=== PATIENT | female | born 1945 | race Caucasian/White ===

== ENCOUNTER 2016-08-30 15:13 | Emergency (ER) | payer OTHER, MEDICARE ==
[2016-08-30 15:26] VITALS: BP 110/68
--- NOTE | 2016-08-30 15:42 | UC ---
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 STARTED WHILE AT REST. NO RADIATION OF THE PAIN. NO NAUSEA, FEVER, SOB OR SWEATS. TOOK 2 TUMS AND BURPED THEN FELT BETTER. PAIN WAS COMPLETELY RESOLVED PRIOR TO COMING TO BUT WAS CONCERNED SO BROUGHT HER IN. HE REPORTS SHE HAD SOME DIZZINESS THIS MORNING WHEN GETTING OUT OF THE TUB WHICH ALSO WORRIED HIM. PT STATES THE DIZZINESS LAST FOR A FEW MINUTES BUT THEN WAS GONE. SHE WONDERS IF IT WAS BECAUSE SHE HADN'T EATEN ANYTHING. PT CURRENTLY FEELS WELL AT HER BASELINE. - History of Current Complaint Stated Complaint: CHEST PAIN Time Seen by Provider: 08/30/16 15:16 Hx Obtained From: Patient, Family/Doughnut Icer - Onset/Duration: Sudden Onset, Lasting Hours, Resolved Initial Severity: Moderate Current Severity: None Pain Intensity: 0 Chest Pain Location: Right Anterior Character: Heaviness Aggravating: Nothing Alleviating: Spontaneous Resolution Associated Signs & Symptoms: Positive: Chest Pain, Dizziness. Negative: Vision Changes, Anxiety, Recent Stress, Numbness, Tingling, Weakness, SOB, Syncope, Fever, Diaphoresis, Nausea/Vomiting, Palpitations, Back Pain - Allergy/Home Medications Allergies/Adverse Reactions: Allergies Allergy/AdvReac Type Severity Reaction Status Date / Time No Known Allergies Allergy Verified 08/30/16 15:24 Home Medications: Home Medications Pancrelipase (NF) [Creon (NF)] 3 cap PO TID WITH MEALS 08/30/16 [History Confirmed 08/30/16] Spironolactone TAB* [Aldactone TAB 25 MG*] 50 mg PO DAILY 08/30/16 [History Confirmed 08/30/16] PMH/Surg Hx/FS Hx/Imm Hx - Additional Past Medical History Additional PMH: PANCREATIC CANCER, CAMI Endocrine History Of: Denies: Diabetes Cardiovascular History Of: Denies: Hypertension, Pacemaker/ICD, Congestive Heart Failure Respiratory History Of: Denies: Asthma GI/ History Of: Denies: Renal Disease Neurological History Of: Denies: TIA Psychological History Of: Reports: Depression Cancer History Of: Reports: Breast Cancer - dcis 2011 (october?) WITH RADIATION ONLY - Surgical History Surgical History: Yes Surgery Procedure, Year, and Place: mitch, 3 c-sections, right breast lumpectomy , Whipple surgery 07/17/2014 - Family History Known Family History: Positive: Cardiac Disease, Hypertension, Diabetes, Other - No FHx of Ebola - Social History Alcohol Use: None Substance Use Type: None Substance Use Comment - Amount & Last Used: vicodin po Smoking Status (MU): Former Smoker Type: Cigarettes Amount Used/How Often: 1/2 PPD for 5 years Length of Time of Smoking/Using Tobacco: 5 years Have You Smoked in the Last Year: No When Did the Patient Quit Smoking/Using Tobacco: 20 YRS AGO - Immunization History Most Recent Influenza Vaccination: 02/22/15 Most Recent Tetanus Shot: up to date Most Recent Pneumonia Vaccination: 05/05/14 Review of Systems Constitutional: Negative ENT: Negative Respiratory: Negative Cardiovascular: Chest Pain Gastrointestinal: Negative Neurological: Other - DIZZY All Other Systems Reviewed And Are Negative: Yes Physical Exam Triage Information Reviewed: Yes Appearance: Well-Appearing, No Pain Distress, Well-Nourished Vital Signs: Initial Vital Signs Temp 98.5 F 08/30/16 15:17 Pulse 69 08/30/16 15:17 Resp 18 08/30/16 15:17 BP 110/68 08/30/16 15:17 Pulse Ox 96 08/30/16 15:17 Vital Signs Reviewed: Yes Eyes: Positive: Conjunctiva Clear ENT: Positive: Hearing grossly normal Neck: Positive: Supple Respiratory Exam: Normal Cardiovascular Exam: Normal Abdomen Description: Positive: Soft Musculoskeletal: Positive: No Edema Neurological: Positive: Alert Psychological: Positive: Age Appropriate Behavior Skin: Negative: rashes Diagnostics - EKG Cardiac Rate: NL - 70 BPM Cardiac Rhythm: Sinus: Normal Ectopy: None - Differential Diagnoses - Chest Pain Differential Diagnosis/HQI/PQRI: ACS, Chest Wall, Pulmonary Embolism - Clinical Impression Provider Diagnoses: REFLUX Discharge - Discharge Plan Condition: Stable Disposition: HOME Patient Education Materials: Gastroesophageal Reflux Disease (ED) Referrals: Jen Mcgee MD [Primary Care Provider] - If Needed Additional Instructions: YOUR SYMPTOMS SEEM TO BE RELATED TO REFLUX HOWEVER LOW THRESHOLD FOR GOING TO THE ER IF YOUR SYMPTOMS RETURN. GO TO ER WITHOUT FAIL IF YOU DEVELOP WORSENING CHEST PAIN, SHORTNESS OF BREATH, NAUSEA, SWEATS OR ANY OTHER CONCERNING SYMPTOMS.
== END 2016-08-30 15:53 | disposition home or self-care (01) ==
LOC: UCEAST 15:13
DX: K21.9 Gastro-esophageal reflux disease without esophagitis (principal); Z90.49 Acquired absence of other specified parts of digestive tract; Z87.891 Personal history of nicotine dependence
CPT/HCPCS: 93005; 99211; G0463

== ENCOUNTER 2016-09-12 02:56 | Observation (INO) | payer OTHER, MEDICARE ==
[2016-09-12] MEDS ORDERED: NS 0.9% 1000 ML* 1,000 ML IV ONE (03:26)
[2016-09-12] MEDS ORDERED: Ondansetron INJ* 2 MG/ML VIAL IV ONE (03:26)
[2016-09-12] MEDS ORDERED: HYDROmorphone* 1 MG/ML 1 ML SYR IV ONE ×2 (03:26→06:34)
[2016-09-12 03:39] LABS: Hematocrit 33 % (35-47); Hemoglobin 10.8 g/dl (12.0-16.0); Mean Corpuscular HGB Conc 33 g/dl (31-36); Mean Corpuscular Hemoglobin 30 pg (27-31); Mean Corpuscular Volume 93 fL (80-97); Mean Platelet Volume 8 um3 (7.4-10.4); Red Blood Count 3.54 10^6/ul (4.0-5.4); Red Cell Distribution Width 15 % (10.5-15); White Blood Count 8.3 10^3/ul (3.5-10.8)
[2016-09-12 03:55] LABS: Albumin 2.9 g/dL (3.2-5.2); BUN/Creatinine Ratio 23.9 (8-20); C Reactive Protein 7.83 mg/L (< 5.00); Calcium 8.2 mg/dL (8.6-10.3); EGFR African American 81.7 (>60); EGFR Non-African American 63.5 (>60); Globulin 2.6 g/dL (2-4); Potassium 4.7 mmol/L (3.5-5.0); Total Bilirubin 0.4 mg/dL (0.2-1.0); Total Protein 5.5 g/dL (6.4-8.9)
[2016-09-12] MEDS ORDERED: Iohexol 300* (CONTRAST) 10 ML SDV IV ONE (04:28)
--- NOTE | 2016-09-12 07:03 | ED ---
Chelsea, DoctorDemi, scribed for Domitila Cordero MD on 09/12/16 at 0321 . GI/ HPI - HPI Summary HPI Summary: 71 year old female arrived to [facility] c/o abdominal pain starting at 00:30 today. She rated the pain as 10/10 upon arrival. She reports chills in addition to the abdominal pain; she denies any N/V/D, constipation, dysuria, or fever. She reports having similar episodes on and off in the past, but never of this intensity; however, this particular episode is similar to an obstruction previously experienced when she had stent inserted in her bile duct. Pt has PMHx of liver cancer, and a history of regular infections since 2014 (port that was in place since removed). She also had a whipple procedure in 05/2014. She regularly sees Dr. Mcgee (PCP) and Dr. Torres (Infectious Disease). - History of Current Complaint Chief Complaint: EDAbdPain Time Seen by Provider: 09/12/16 03:07 Stated Complaint: ABD PAIN Hx Obtained From: Patient Onset/Duration: Started Hours Ago, Still Present Timing: Constant Severity: Moderate Current Severity: Moderate Pain Intensity: 10 - on 0-10 numerical scale Location of Pain: Diffuse Associated Signs and Symptoms: Positive: Chills, Abdominal Pain - diffuse. Negative: Nausea, Vomiting, Constipation, Diarrhea, Fever, Dysuria - Additional Pertinent History Primary Care Physician: [id number] - Allergy/Home Medications Allergies/Adverse Reactions: Allergies Allergy/AdvReac Type Severity Reaction Status Date / Time No Known Allergies Allergy Verified 08/30/16 15:24 PMH/Surg Hx/FS Hx/Imm Hx Endocrine/Hematology History: Reports: Hx Blood Disorders Denies: Hx Diabetes, Hx Systemic Lupus Erythematosus Cardiovascular History: Denies: Hx Congestive Heart Failure, Hx Hypertension, Hx Pacemaker/ICD Respiratory History: Reports: Hx Sleep Apnea, Other Respiratory Problems/ Disorders - home oxygen use of 2 liters at night Denies: Hx Asthma GI History: Reports: Hx Gastroesophageal Reflux Disease, Hx Jaundice, Other GI Disorders - ERCP for obstructive jaundice, whipple 2013 History: Denies: Hx Dialysis, Hx Renal Disease Musculoskeletal History: Denies: Hx Rheumatoid Arthritis, Hx Osteoporosis Sensory History: Reports: Hx Contacts or Glasses Denies: Hx Hearing Aid Opthamlomology History: Reports: Hx Contacts or Glasses Neurological History: Denies: Hx Transient Ischemic Attacks (TIA) Psychiatric History: Reports: Hx Depression Denies: Hx Panic Disorder - Cancer History Cancer Type, Location and Year: BREAST CA RIGHT, pancreatic cancer Hx Chemotherapy: Yes - 12/2014, NOT BREAST RELATED Hx Radiation Therapy: Yes - 12/2014 NOT BREAST RELATED - Surgical History Surgery Procedure, Year, and Place: mitch, 3 c-sections, right breast lumpectomy , Whipple surgery 07/17/2014 Hx Anesthesia Reactions: No Infectious Disease History: No Infectious Disease History: Reports: History Other Infectious Disease - "BLOOD INFECTION" Denies: Traveled Outside the [place] in Last 30 Days - Family History Known Family History: Positive: Cardiac Disease, Hypertension, Diabetes, Other - No FHx of Ebola - Social History Lives: With Family Alcohol Use: None Substance Use Type: Reports: None Substance Use Comment - Amount & Last Used: vicodin po Hx Tobacco Use: Yes Smoking Status (MU): Former Smoker Type: Cigarettes Amount Used/How Often: 1/2 PPD for 5 years Length of Time of Smoking/Using Tobacco: 5 years Have You Smoked in the Last Year: No Review of Systems Positive: Chills. Negative: Fever Positive: Abdominal Pain, Other - no constipation. Negative: Vomiting, Diarrhea , Nausea Negative: dysuria All Other Systems Reviewed And Are Negative: Yes Physical Exam Triage Information Reviewed: Yes Vital Signs On Initial Exam: Initial Vitals Temp Pulse Resp BP Pulse Ox 98.6 F 80 18 123/52 97 09/12/16 03:00 09/12/16 03:00 09/12/16 03:00 09/12/16 03:00 09/12/16 03:00 Vital Signs Reviewed: Yes Appearance: Positive: Well-Appearing, No Pain Distress Skin: Positive: Warm, Skin Color Reflects Adequate Perfusion, Dry Eyes: Positive: EOMI, CORTES ENT: Positive: Pharynx normal, TMs normal Neck: Positive: Supple, Nontender Respiratory/Lung Sounds: Positive: Clear to Auscultation, Breath Sounds Present. Negative: Rales, Rhonchi, Wheezes Cardiovascular: Positive: RRR. Negative: Murmur, Rub Abdomen Description: Positive: Soft. Negative: Nontender - diffuse abdominal tenderness Bowel Sounds: Positive: Present Musculoskeletal: Positive: Strength/ROM Intact. Negative: Edema Left, Edema Right Neurological: Positive: Sensory/Motor Intact, Alert, Oriented to Person Place, Time, CN Intact II-III Psychiatric: Positive: Affect/Mood Appropriate Diagnostics - Vital Signs Vital Signs Temp Pulse Resp BP Pulse Ox 09/12/16 03:00 98.6 F 80 18 123/52 97 - Laboratory Lab Results: Lab Results 09/12/16 09/12/16 09/12/16 Range/Units 03:22 03:22 03:22 WBC 8.3 (3.5-10.8) 10^3/ul RBC 3.54 L (4.0-5.4) 10^6/ul Hgb 10.8 L (12.0-16.0) g/dl Hct 33 L (35-47) % MCV 93 (80-97) fL MCH 30 (27-31) pg MCHC 33 (31-36) g/dl RDW 15 (10.5-15) % Plt Count 185 (150-450) 10^3/ul MPV 8 (7.4-10.4) um3 Neut % (Auto) 88.3 H (38-83) % Lymph % (Auto) 7.5 L (25-47) % Baca % (Auto) 3.7 (1-9) % Eos % (Auto) 0.2 (0-6) % Baso % (Auto) 0.3 (0-2) % Absolute Neuts (auto) 7.4 (1.5-7.7) 10^3/ul Absolute Lymphs (auto) 0.6 L (1.0-4.8) 10^3/ul Absolute Monos (auto) 0.3 (0-0.8) 10^3/ul Absolute Eos (auto) 0 (0-0.6) 10^3/ul Absolute Basos (auto) 0 (0-0.2) 10^3/ul Absolute Nucleated RBC 0 10^3/ul Nucleated RBC % 0 Sodium 134 (133-145) mmol/L Potassium 4.7 (3.5-5.0) mmol/L Chloride 109 (101-111) mmol/L Carbon Dioxide 20 L (22-32) mmol/L Anion Gap 5 (2-11) mmol/L BUN 21 (6-24) mg/dL Creatinine 0.88 (0.51-0.95) mg/dL Est GFR ( Amer) 81.7 (>60) Est GFR (Non-Af Amer) 63.5 (>60) BUN/Creatinine Ratio 23.9 H (8-20) Glucose 117 H (70-100) mg/dL Lactic Acid 1.1 (0.5-2.0) mmol/L Calcium 8.2 L (8.6-10.3) mg/dL Total Bilirubin 0.40 (0.2-1.0) mg/dL AST 27 (13-39) U/L ALT 17 (7-52) U/L Alkaline Phosphatase 117 H (34-104) U/L C-Reactive Protein 7.83 H (< 5.00) mg/L Total Protein 5.5 L (6.4-8.9) g/dL Albumin 2.9 L (3.2-5.2) g/dL Globulin 2.6 (2-4) g/dL Albumin/Globulin Ratio 1.1 (1-3) Lipase 13 (11.0-82.0) U/L Result Diagrams: 09/12/16 03:22 09/12/16 03:22 Lab Statement: Any lab studies that have been ordered have been reviewed, and results considered in the medical decision making process. - Radiology Chest X-Ray Radiology Interpretation Completed By: ED Physician - Pacemaker in place. CXR Normal. - CT CT A/P CT Interpretation Completed By: Radiologist - Impression: No change in a small amount of ascites. Mild inflammation and narrowing of the gastro-jejunostomy without obstruction, which may be due to infection or reaction to chemotherapy. - EKG 03:13 Cardiac Rate: NL - 80 EKG Rhythm: Sinus Rhythm Ectopy: None EKG Interpretation: Low Voltage EKG Comparison: No Significant Change - unchanged from 08/30 GIGU Course/Dx - Course Course Of Treatment: 71 yo female with history of cancer s/p whipple with onset of abd pain at midnight at home. Pt has been given pain meds and is awaiting a CT and will be signed out to Dr. Dupree for final disposition - Diagnoses Provider Diagnoses: SOB (shortness of breath), Chest pain Discharge - Discharge Plan Condition: Stable Disposition: HOME Patient Education Materials: Chest Pain (ED), Dyspnea (ED) Referrals: Jen Mcgee MD [Primary Care Provider] - The documentation as recorded by the scribe, Doctor,Demi accurately reflects the service I personally performed and the decisions made by me, Domitila Cordero MD.
[2016-09-12 07:27] LABS: Urine Bacteria Absent (Absent); Urine Bilirubin Negative (Negative); Urine Glucose Negative (Negative); Urine Nitrite Negative (Negative)
--- NOTE | 2016-09-12 08:10 | RAD ---
CLINICAL HISTORY: Abdominal pain, liver cancer COMPARISON: March 10, 2016 TECHNIQUE: Multiple contiguous axial CT scans were obtained of the abdomen and pelvis after the administration of intravenous contrast. Coronal and sagittal multiplanar reformations are submitted for review. Oral contrast was administered. Delayed images were obtained through the abdomen FINDINGS: LUNG BASES: The lung bases are clear. LIVER: The liver is normal in shape, size, contour, and attenuation. BILE DUCTS: There is pneumobilia GALLBLADDER: The gallbladder is not visualized PANCREAS: The head of the pancreas is not seen. The patient appears to be status post Whipple's procedure. The tail the pancreas is patent with mild pancreatic ductal dilatation. SPLEEN: Normal in size and appearance. UPPER GI TRACT: Evaluation of the gastrointestinal tract is limited by incomplete gastric distention. There is mucosal thickening of the GE junction. The patient appears to be status post Whipple's procedure SMALL BOWEL AND MESENTERY: As noted above, patient appears to be status post Whipple's procedure. There is mild distention in the region of the gastrojejunostomy without dilatation. There is mild inflammatory change along the gastrojejunostomy COLON: There is diverticulosis of the distal colon ADRENALS: Normal bilaterally. KIDNEYS: The kidneys are normal in shape, size, contour, and axis. There is no hydronephrosis or nephrolithiasis. BLADDER: The bladder is smooth in contour. PELVIC ORGANS: The uterus and adnexa are grossly normal for technique. AORTA: The aorta is normal. IVC: Unremarkable LYMPH NODES: There are retroperitoneal lymph nodes measuring up to 0.9 cm in short axis. These are similar to the previous examination. ABDOMINAL WALL: There is no evidence for abdominal wall hernia. BONES AND SOFT TISSUES: Degenerative changes are noted along the spine OTHER: There is a moderate amount of perihepatic ascites similar to the previous examination. IMPRESSION: 1. STATUS POST WHIPPLE'S PROCEDURE. 2. THERE IS MILD DISTENTION OF THE BOWEL IN THE REGION OF GASTROJEJUNOSTOMY WITH MILD ADJACENT INFLAMMATORY CHANGE. 3. STABLE PERIHEPATIC ASCITES.
[2016-09-12] MEDS ORDERED: HYDROmorphone* 1 MG/ML 1 ML SYR IV SLOW PU ONE (09:30)
[2016-09-12] MEDS ORDERED: Ondansetron INJ* 2 MG/ML VIAL IV PRN (10:06)
[2016-09-12] MEDS: Pantoprazole IV* 40 MG IV SCH (13:43)
[2016-09-12] MEDS: NS 0.9% 1000 ML* 1,000 ML IV SCH (13:43)
[2016-09-12] MEDS: HYDROmorphone* 1 MG/ML 1 ML SYR IV SLOW PU PRN ×2 (13:51→20:01)
[2016-09-12] MEDS ORDERED: Acetaminophen TAB* 325 MG PO PRN (23:25)
[2016-09-12] MEDS ORDERED: Acetaminophen TAB* 325 MG ONE (23:31)
[2016-09-13] MEDS: HYDROmorphone* 1 MG/ML 1 ML SYR IV SLOW PU PRN ×2 (00:30→21:38)
[2016-09-13] MEDS: NS 0.9% 1000 ML* 1,000 ML IV SCH ×2 (02:23→08:04)
[2016-09-13] MEDS ORDERED: NS 0.9% 500 ML BAG* 500 ML IV ONE (05:40)
[2016-09-13] MEDS: Pantoprazole IV* 40 MG IV SCH (07:47)
[2016-09-13 07:59] LABS: Hematocrit 27 % (35-47); Hemoglobin 8.6 g/dl (12.0-16.0); Mean Corpuscular HGB Conc 32 g/dl (31-36); Mean Corpuscular Hemoglobin 31 pg (27-31); Mean Corpuscular Volume 94 fL (80-97); Mean Platelet Volume 8 um3 (7.4-10.4); Red Blood Count 2.81 10^6/ul (4.0-5.4); Red Cell Distribution Width 15 % (10.5-15)
[2016-09-13 08:11] LABS: Add Diff/Slide Review? Slide Review Added; Comments Flag Yes
[2016-09-13 08:13] LABS: Albumin 2.3 g/dL (3.2-5.2); BUN/Creatinine Ratio 27.9 (8-20); Calcium 7.6 mg/dL (8.6-10.3); EGFR African American 83.9 (>60); EGFR Non-African American 65.2 (>60); Globulin 2.2 g/dL (2-4); Potassium 4.7 mmol/L (3.5-5.0); Total Bilirubin 0.5 mg/dL (0.2-1.0); Total Protein 4.5 g/dL (6.4-8.9)
--- NOTE | 2016-09-13 11:11 | CONSULT ---
Consult Consult: Greer Marinelli of Hem/Onc came to the ED and saw Ms. Gaspar. She was admitted in stable condition with a diagnosis of abdominal pain.
[2016-09-13] MEDS ORDERED: CMC:Anastrozole (NF) 1 MG TAB PO SCH (12:00)
[2016-09-13] MEDS ORDERED: PTO: Anastrozole (NF) 1 MG TAB PO SCH (16:38)
[2016-09-13] MEDS: PANCRELIPASE 12000 UNIT PO SCH (17:15)
[2016-09-14] MEDS: NS 0.9% 1000 ML* 1,000 ML IV SCH (05:06)
[2016-09-14 05:48] LABS: Hematocrit 25 % (35-47); Hemoglobin 8.3 g/dl (12.0-16.0); Mean Corpuscular HGB Conc 33 g/dl (31-36); Mean Corpuscular Hemoglobin 31 pg (27-31); Mean Corpuscular Volume 93 fL (80-97); Mean Platelet Volume 8 um3 (7.4-10.4); Red Cell Distribution Width 15 % (10.5-15); White Blood Count 5.8 10^3/ul (3.5-10.8)
[2016-09-14 06:00] LABS: Albumin 2.2 g/dL (3.2-5.2); BUN/Creatinine Ratio 28.9 (8-20); Calcium 7.3 mg/dL (8.6-10.3); EGFR African American 96.8 (>60); EGFR Non-African American 75.2 (>60); Globulin 2.2 g/dL (2-4); Potassium 4.3 mmol/L (3.5-5.0); Total Bilirubin 0.4 mg/dL (0.2-1.0); Total Protein 4.4 g/dL (6.4-8.9)
[2016-09-14] MEDS: PANCRELIPASE 12000 UNIT PO SCH (08:09)
[2016-09-14] MEDS: Pantoprazole IV* 40 MG IV SCH (08:10)
[2016-09-14 08:21] VITALS: BP 106/55
[2016-09-14] MEDS ORDERED: BIFIDOBACTERIUM INFANTIS PO SCH (09:00)
--- NOTE | 2016-10-23 12:33 | DS ---
DISCHARGE SUMMARY: DATE OF ADMISSION: 09/12/16 DATE OF DISCHARGE: 09/14/16 HOSPITAL COURSE: Sharon willis is a 71-year-old female with a history of cholangiocarcinoma. She is status post therapy and has been off therapy for over a year. She has had lots of problems in the past with severe malnutrition , worsening ascites, elevated CA19-9 tumor marker, abdominal pain, multiple episodes of infection. She had intermittent abdominal pain since her Whipple in May 2014 who presented this time with severe pain 10/10 in the left upper and lower quadrant. There is no associated nausea, vomiting, diarrhea or constipation. Hydromorphone was given in the emergency room with only modest help. Decision was made to admit her to the hospital and to treat her with IV fluids and pain medications. CT scan of the abdomen and pelvis revealed mild distention of the bowel in the region of the gastrojejunostomy with mild adjacent inflammatory changes and stable lenore-hepatic ascites. No other significant findings were noted. The patient was treated as discussed above with IV narcotics and IV fluids. By the following day her pain was somewhat improved, she had had a solitary isolated fever to 100.7, but had no symptoms associated with this. We tried to slowly increase her diet. She tolerated this well, and problems resolved, and she was able to be discharged to home on 09/14/16. Most likely this was really small bowel obstruction as she has had several times in the past. DISCHARGE DIAGNOSES: 1. Abdominal pain, question small bowel obstruction. 2. History of cholangiocarcinoma. MEDICATIONS AT THE TIME OF DISCHARGE: Included 1. Creon/pancrelipase 3 caps 3 times per day with meals. 2. Spironolactone 50 mg daily. 3. Anastrozole 1 mg daily for previous history of breast cancer. 4. Probiotics daily. 5. Magnesium oxide 40 mg b.i.d. 6. Zofran 4 mg q. 6 hours p.r.n. [id number]/[facility] #: [id number] [facility]
== END 2016-09-14 11:45 | disposition home or self-care (01) ==
LOC: ED 02:56 → MED 10:02
PROVIDERS: ADMIT Internal Medicine Hematology & Oncology; ATTEND Internal Medicine Hematology & Oncology
DX: Z85.07 Personal history of malignant neoplasm of pancreas (principal); K21.9 Gastro-esophageal reflux disease without esophagitis; R18.8 Other ascites; Z87.891 Personal history of nicotine dependence; Z79.899 Other long term (current) drug therapy
CPT/HCPCS: 36415; 74177; 80053; 81003; 81015; 83605; 83690; 85025; 86140; 87086; 93005; 96374; 96375; 96376; 99220; 99233; 99238; 99283; A9270-GY; G0378; J1170; J2405; Q9967

== ENCOUNTER 2017-05-10 09:12 | Emergency (ER) | payer MEDICARE, OTHER ==
[2017-05-10] MEDS ORDERED: Ondansetron INJ* 2 MG/ML VIAL IV ONE (10:24)
[2017-05-10] MEDS ORDERED: Famotidine IV* 10 MG/ML 2 ML (20 mg) IV ONE (10:24)
[2017-05-10] MEDS ORDERED: NS 0.9% 1000 ML* 1,000 ML IV ONE ×2 (10:24→12:05)
[2017-05-10 11:02] LABS: Hematocrit 31 % (35-47); Hemoglobin 10.1 g/dl (12.0-16.0); Mean Corpuscular HGB Conc 33 g/dl (31-36); Mean Corpuscular Hemoglobin 29 pg (27-31); Mean Corpuscular Volume 89 fL (80-97); Mean Platelet Volume 8 um3 (7.4-10.4); Red Blood Count 3.45 10^6/ul (4.0-5.4); Red Cell Distribution Width 15 % (10.5-15); White Blood Count 5.7 10^3/ul (3.5-10.8)
[2017-05-10 11:17] LABS: ALT 24 U/L (7-52); Albumin 3.2 g/dL (3.2-5.2); Alkaline Phosphatase 139 U/L (34-104); BUN/Creatinine Ratio 17.6 (8-20); Blood Urea Nitrogen 18 mg/dL (6-24); C Reactive Protein 26.91 mg/L (< 5.00); CO2 Carbon Dioxide 18 mmol/L (22-32); Calcium 8.3 mg/dL (8.6-10.3); Chloride 104 mmol/L (101-111); Creatine Kinase 45 U/L (10-223); EGFR African American 68.9 (>60); EGFR Non-African American 53.6 (>60); Globulin 2.9 g/dL (2-4); Glucose 101 mg/dL (70-100); Lipase 15 U/L (11.0-82.0); Sodium 126 mmol/L (133-145); Total Protein 6.1 g/dL (6.4-8.9)
[2017-05-10 11:24] LABS: Anion Gap 4 mmol/L (2-11)
[2017-05-10] MEDS ORDERED: Morphine INJ* 4 MG/ML 1 ML CARPUJECT IV ONE (11:27)
--- NOTE | 2017-05-10 11:51 | RAD ---
INDICATION: Short of breath COMPARISON: Chest x-ray March 06, 2016 TECHNIQUE: An AP portable view obtained at 1125 hours is submitted. FINDINGS: Bones/Soft Tissues: There are no acute bony findings. Cardiomediastinal: The cardiomediastinal silhouette is normal. Lungs: There are no infiltrates. Pleura: There are no pleural effusions. Other: None IMPRESSION: NO ACTIVE DISEASE.
[2017-05-10 12:38] LABS: Urine Bilirubin Negative (Negative); Urine Glucose Negative (Negative); Urine Nitrite Negative (Negative)
[2017-05-10 12:56] LABS: Magnesium 1.7 mg/dL (1.9-2.7)
--- NOTE | 2017-05-10 13:03 | ED ---
Nausea/Vomiting/Diarrhea HPI - HPI Summary HPI Summary: Patient is a 71F with a history of breast CA and pancreatic duct CA and whipple procedure in 2013 presents with N/V/D sine this morning. She has been eating and drinking OK until this morning. Denies fevers, sweats, chills. Denies abdominal pain. Notes to 3-4 bouts of vomiting in a row which has since resolved. Denies hematemesis or melena. 2 bouts of diarrhea described as loose and brown. Not malodorous. Endorses diffuse body aches. Flu shot UTD. Denies chest pain, SOB, SNOW, ear pain, ear pain. Endorses weakness which began today. Not had PO intake since last evening. Patient of Dr. Kauffman. Last CT obtained 2 months ago showed no changes from previous CT. She has felt otherwise well with last illness requiring an ED visit over 1 year ago. Flu vaccine UTD this year. Denies sick contacts. Denies travel. VS stable on arrival and noted at 108/63; 96 pulse ox; 82 HR. Afebrile on arrival. - History of Current Complaint Chief Complaint: EDFluSymptoms Stated Complaint: SORE THROAT , VOMITING, Time Seen by Provider: 05/10/17 09:20 Hx Obtained From: Patient ?: No Onset/Duration: Sudden Onset Timing: Constant Severity Initially: Mild Severity Currently: Mild Pain Intensity: 3 Pain Scale Used: 0-10 Numeric Character: Cramping Alleviating Factor(s): Nothing Nausea/Vomiting Presence: Nauseated, Vomiting Vomiting Frequency: Every 15-60 minutes Nausea/Vomiting Duration: 0-12 hours Vomiting Characteristics: Nonbilious Diarrhea Presence: Yes Diarrhea Frequency: Every 15-60 minutes Diarrhea Duration: 0-12 hours - Risk Factors Influenza Risk Factors: Chronic Medical or Immunosuppresive Condition - Allergies/Home Medications Allergies/Adverse Reactions: Allergies Allergy/AdvReac Type Severity Reaction Status Date / Time No Known Allergies Allergy Verified 03/11/17 09:40 PMH/Surg Hx/FS Hx/Imm Hx Previously Healthy: Yes Endocrine/Hematology History: Reports: Hx Blood Disorders Denies: Hx Diabetes, Hx Systemic Lupus Erythematosus Cardiovascular History: Denies: Hx Congestive Heart Failure, Hx Hypertension, Hx Pacemaker/ICD Respiratory History: Reports: Hx Sleep Apnea, Other Respiratory Problems/ Disorders - home oxygen use of 2 liters at night Denies: Hx Asthma GI History: Reports: Hx Gastroesophageal Reflux Disease, Hx Jaundice, Other GI Disorders - ERCP for obstructive jaundice, whipple 2013 History: Denies: Hx Dialysis, Hx Renal Disease Musculoskeletal History: Denies: Hx Rheumatoid Arthritis, Hx Osteoporosis Sensory History: Reports: Hx Contacts or Glasses Denies: Hx Hearing Aid Opthamlomology History: Reports: Hx Contacts or Glasses Neurological History: Denies: Hx Transient Ischemic Attacks (TIA) Psychiatric History: Reports: Hx Depression Denies: Hx Panic Disorder - Cancer History Cancer Type, Location and Year: BREAST CA RIGHT, pancreatic cancer Hx Chemotherapy: Yes - 12/2014, NOT BREAST RELATED Hx Radiation Therapy: Yes - 12/2014 NOT BREAST RELATED - Surgical History Surgery Procedure, Year, and Place: mitch, 3 c-sections, right breast lumpectomy , Whipple surgery 07/17/2014 Hx Anesthesia Reactions: No - Immunization History Hx Pertussis Vaccination: No Immunizations Up to Date: Unable to Obtain/Confirm Infectious Disease History: No Infectious Disease History: Reports: History Other Infectious Disease - "BLOOD INFECTION" Denies: Traveled Outside the [place] in Last 30 Days - Family History Known Family History: Positive: Cardiac Disease, Hypertension, Diabetes, Other - No FHx of Ebola - Social History Occupation: Retired Lives: With Family Alcohol Use: None Hx Substance Use: No Substance Use Type: Reports: None Substance Use Comment - Amount & Last Used: vicodin po Hx Tobacco Use: Yes Smoking Status (MU): Former Smoker Type: Cigarettes Amount Used/How Often: 1/2 PPD for 5 years Length of Time of Smoking/Using Tobacco: 5 years Have You Smoked in the Last Year: No Review of Systems Constitutional: Negative Positive: Fatigue. Negative: Fever, Chills, Skin Diaphoresis Eyes: Negative ENT: Negative Cardiovascular: Negative Respiratory: Negative Positive: Vomiting, Diarrhea, Nausea Genitourinary: Negative Positive: no symptoms reported, see HPI Musculoskeletal: Negative Positive: Headache All Other Systems Reviewed And Are Negative: Yes Physical Exam Triage Information Reviewed: Yes Vital Signs On Initial Exam: Initial Vitals Temp Pulse Resp BP Pulse Ox 99.3 F 95 16 119/51 98 05/10/17 09:14 05/10/17 09:14 05/10/17 09:14 05/10/17 09:14 05/10/17 09:14 Vital Signs Reviewed: Yes Appearance: Positive: Ill-Appearing Skin: Positive: Skin Color Reflects Adequate Perfusion Head/Face: Positive: Normal Head/Face Inspection Eyes: Positive: CORTES, Conjunctiva Clear Neck: Positive: Supple, No Lymphadenopathy Respiratory/Lung Sounds: Positive: Breath Sounds Present Cardiovascular: Positive: Pulses are Symmetrical in both Upper and Lower Extremities Abdomen Description: Positive: Nontender, Soft Musculoskeletal: Positive: Strength/ROM Intact Neurological: Positive: Alert, Oriented to Person Place, Time, Speech Normal Psychiatric: Positive: Normal - Donato Coma Scale Coma Scale Total: 15 Diagnostics - Vital Signs Vital Signs Temp Pulse Resp BP Pulse Ox 05/10/17 12:39 18 05/10/17 12:00 78 106/59 95 05/10/17 11:30 82 108/63 96 05/10/17 11:04 84 100/66 96 05/10/17 10:59 83 96 05/10/17 10:30 116/54 05/10/17 10:21 89 97 05/10/17 10:19 125/71 05/10/17 09:14 99.3 F 95 16 119/51 98 - Laboratory Lab Results: Lab Results 05/10/17 05/10/17 05/10/17 Range/Units 10:41 10:41 10:41 WBC 5.7 (3.5-10.8) 10^3/ul RBC 3.45 L (4.0-5.4) 10^6/ul Hgb 10.1 L (12.0-16.0) g/dl Hct 31 L (35-47) % MCV 89 (80-97) fL MCH 29 (27-31) pg MCHC 33 (31-36) g/dl RDW 15 (10.5-15) % Plt Count 197 (150-450) 10^3/ul MPV 8 (7.4-10.4) um3 Neut % (Auto) 76.9 (38-83) % Lymph % (Auto) 14.8 L (25-47) % [place] % (Auto) 7.2 (1-9) % Eos % (Auto) 0.1 (0-6) % Baso % (Auto) 1.0 (0-2) % Absolute Neuts (auto) 4.4 (1.5-7.7) 10^3/ul Absolute Lymphs (auto) 0.8 L (1.0-4.8) 10^3/ul Absolute Monos (auto) 0.4 (0-0.8) 10^3/ul Absolute Eos (auto) 0 (0-0.6) 10^3/ul Absolute Basos (auto) 0.1 (0-0.2) 10^3/ul Absolute Nucleated RBC 0 10^3/ul Nucleated RBC % 0.1 Sodium 126 L (133-145) mmol/L Potassium TNP Chloride 104 (101-111) mmol/L Carbon Dioxide 18 L (22-32) mmol/L Anion Gap 4 (2-11) mmol/L BUN 18 (6-24) mg/dL Creatinine 1.02 H (0.51-0.95) mg/dL Est GFR ( Amer) 68.9 (>60) Est GFR (Non-Af Amer) 53.6 (>60) BUN/Creatinine Ratio 17.6 (8-20) Glucose 101 H (70-100) mg/dL Lactic Acid 0.6 (0.5-2.0) mmol/L Calcium 8.3 L (8.6-10.3) mg/dL Magnesium TNP Total Bilirubin 0.30 (0.2-1.0) mg/dL AST TNP ALT 24 (7-52) U/L Alkaline Phosphatase 139 H (34-104) U/L Total Creatine Kinase 45 (10-223) U/L Troponin I 0.00 (<0.04) ng/mL C-Reactive Protein 26.91 H (< 5.00) mg/L Total Protein 6.1 L (6.4-8.9) g/dL Albumin 3.2 (3.2-5.2) g/dL Globulin 2.9 (2-4) g/dL Albumin/Globulin Ratio 1.1 (1-3) Lipase 15 (11.0-82.0) U/L Urine Color Urine Appearance Urine pH (5-9) Ur Specific [place] (1.010-1.030) Urine Protein (Negative) Urine Ketones (Negative) Urine Blood (Negative) Urine Nitrate (Negative) Urine Bilirubin (Negative) Urine Urobilinogen (Negative) Ur Leukocyte Esterase (Negative) Urine Glucose (Negative) Influenza A (Rapid) (Negative) Influenza B (Rapid) (Negative) 05/10/17 05/10/17 05/10/17 Range/Units 11:33 12:20 12:20 WBC (3.5-10.8) 10^3/ul RBC (4.0-5.4) 10^6/ul Hgb (12.0-16.0) g/dl Hct (35-47) % MCV (80-97) fL MCH (27-31) pg MCHC (31-36) g/dl RDW (10.5-15) % Plt Count (150-450) 10^3/ul MPV (7.4-10.4) um3 Neut % (Auto) (38-83) % Lymph % (Auto) (25-47) % [place] % (Auto) (1-9) % Eos % (Auto) (0-6) % Baso % (Auto) (0-2) % Absolute Neuts (auto) (1.5-7.7) 10^3/ul Absolute Lymphs (auto) (1.0-4.8) 10^3/ul Absolute Monos (auto) (0-0.8) 10^3/ul Absolute Eos (auto) (0-0.6) 10^3/ul Absolute Basos (auto) (0-0.2) 10^3/ul Absolute Nucleated RBC 10^3/ul Nucleated RBC % Sodium (133-145) mmol/L Potassium Pending Chloride (101-111) mmol/L Carbon Dioxide (22-32) mmol/L Anion Gap (2-11) mmol/L BUN (6-24) mg/dL Creatinine (0.51-0.95) mg/dL Est GFR ( Amer) (>60) Est GFR (Non-Af Amer) (>60) BUN/Creatinine Ratio (8-20) Glucose (70-100) mg/dL Lactic Acid (0.5-2.0) mmol/L Calcium (8.6-10.3) mg/dL Magnesium 1.7 L Total Bilirubin (0.2-1.0) mg/dL AST 33 ALT (7-52) U/L Alkaline Phosphatase (34-104) U/L Total Creatine Kinase (10-223) U/L Troponin I (<0.04) ng/mL C-Reactive Protein (< 5.00) mg/L Total Protein (6.4-8.9) g/dL Albumin (3.2-5.2) g/dL Globulin (2-4) g/dL Albumin/Globulin Ratio (1-3) Lipase (11.0-82.0) U/L Urine Color Straw Urine Appearance Clear Urine pH 5.0 (5-9) Ur Specific [place] 1.004 L (1.010-1.030) Urine Protein Negative (Negative) Urine Ketones Negative (Negative) Urine Blood Negative (Negative) Urine Nitrate Negative (Negative) Urine Bilirubin Negative (Negative) Urine Urobilinogen Negative (Negative) Ur Leukocyte Esterase Negative (Negative) Urine Glucose Negative (Negative) Influenza A (Rapid) Negative (Negative) Influenza B (Rapid) Negative (Negative) Result Diagrams: 05/10/17 10:41 05/10/17 12:20 Lab Statement: Any lab studies that have been ordered have been reviewed, and results considered in the medical decision making process. Naus/Vom/Diarrhea Course/Dx - Course Course Of Treatment: Patient evaluated for N/V/D since this morning. Patient is given 4mg morphine, 4mg zofran and 2L fluids. She is feeling improved since arrival to the ED. Labs obtained and reveals slight anemia with moderate hyponatremia and hyperkalemia. Discharge - Discharge Plan Condition: Stable Disposition: HOME Patient Education Materials: Acute Nausea and Vomiting (ED) Referrals: Jen Mcgee MD [Primary Care Provider] - Additional Instructions: Your salt was a little low (usually this is due to vomiting/diarrhea), so please eat saltine crackers/ salty soups, etc for the next few days Drink plenty of fluids Rest Tylenol for any discomfort For pain not well controlled with tylenol, please take the Tramadol as needed for pain Use your at home zofran for any nausea If you experience any worsening/differing symptoms - return to the ED Please call Dr. Kauffman's office for a follow up.
[2017-05-10 15:58] VITALS: BP 92/55
== END 2017-05-10 16:00 | disposition home or self-care (01) ==
LOC: ED 09:12
DX: R11.2 Nausea with vomiting, unspecified (principal); R51 Headache; R19.7 Diarrhea, unspecified; R53.83 Other fatigue; Z87.891 Personal history of nicotine dependence
CPT/HCPCS: 36415; 71010; 80053; 81003; 82550; 83605; 83690; 83735; 84484; 85025; 86140; 87040; 87502; 93005; 96374; 96375; 99283; J2270; J2405

== ENCOUNTER 2017-05-13 21:11 | Emergency (ER) | payer OTHER ==
[2017-05-13 21:32] VITALS: BP 112/57
[2017-05-13] MEDS ORDERED: predniSONE TAB* 20 MG PO ONE (21:41)
[2017-05-13] MEDS ORDERED: Albuterol 2.5 MG/3 ML NEB.SOL* (0.083%) INH ONE (21:42)
--- NOTE | 2017-05-13 21:52 | UC ---
Respiratory Complaint HPI - HPI Summary HPI Summary: 71 y/o female PMHX of Brast cancer, pancreatic CA s/p whipple surgery 2014 presents to the urgent care accompany by c/o SOB, productive cough with wheezing and weakness 05/11/2017. Pt reports she was recently at the [facility] for N/V/D and D/C home with Zofran PO. Pt reports diarrhea and vomiting resolved on Thursday. But her daughter was Dx with Bronchitis and she thinks she caught up the cough from her. Pt states she is producing a white/tabor phlegm. She has been taking cough drops to alleviate symptoms. Pt denies fever, chest pain, abdominal pain, N/V/D, urinary symptoms. - History of Current Complaint Chief Complaint: UCRespiratory Stated Complaint: COUGH/CONGESTION Time Seen by Provider: 05/13/17 21:17 Hx Obtained From: Patient, Family/Tire Recapper - ?: No Onset/Duration: Gradual Onset, Lasting Days - 2 days, Still Present Timing: Intermittent Episodes - cough Severity Initially: Mild Severity Currently: Mild Pain Intensity: 0 Pain Scale Used: 0-10 Numeric Character: Cough: Productive, Sputum Description: - white and tabor Alleviating Factors: OTC Meds Associated Signs And Symptoms: Positive: Wheezing, Nasal Congestion - Risk Factors Pulmonary Embolism Risk Factors: Negative Cardiac Risk Factors: Negative Pseudomonas Risk Factors: Negative Tuberculosis Risk Factors: Negative - Allergies/Home Medications Allergies/Adverse Reactions: Allergies Allergy/AdvReac Type Severity Reaction Status Date / Time No Known Allergies Allergy Verified 05/13/17 21:19 Home Medications: Home Medications Sulfamethox/Trimethoprim DS* [Bactrim DS 800/160 TAB*] 1 tab PO DAILY 05/13/17 [ History Confirmed 05/13/17] PMH/Surg Hx/FS Hx/Imm Hx Previously Healthy: No - previously in the ER 05/10/2017 for vomting and diarrhea Cancer History: Breast Cancer - s/p brast lumpectomy, Other - Pancreatic Cancer s/p whiple surgery - Surgical History Surgical History: Yes Surgery Procedure, Year, and Place: mitch, 3 c-sections, right breast lumpectomy , Whipple surgery 07/17/2014 - Family History Known Family History: Positive: Cardiac Disease, Hypertension, Diabetes, Other - No FHx of Ebola - Social History Occupation: Retired Lives: With Family Alcohol Use: None Substance Use Type: None Substance Use Comment - Amount & Last Used: vicodin po Smoking Status (MU): Former Smoker Type: Cigarettes Amount Used/How Often: 1/2 PPD for 5 years Length of Time of Smoking/Using Tobacco: 5 years Have You Smoked in the Last Year: No When Did the Patient Quit Smoking/Using Tobacco: 20 YRS AGO - Immunization History Most Recent Influenza Vaccination: fall 2015 Most Recent Tetanus Shot: up to date Most Recent Pneumonia Vaccination: 05/05/14 Review of Systems Constitutional: Negative Skin: Negative Eyes: Negative ENT: Nasal Discharge - mild nasal congestion Respiratory: Shortness Of Breath, Cough Cardiovascular: Negative Gastrointestinal: Negative Genitourinary: Negative Motor: Negative Neurovascular: Negative Musculoskeletal: Negative Neurological: Negative Psychological: Negative Is Patient Immunocompromised?: No All Other Systems Reviewed And Are Negative: Yes Physical Exam Triage Information Reviewed: Yes Vital Signs: Initial Vital Signs Temp 98.8 F 05/13/17 21:22 Pulse 72 05/13/17 21:22 Resp 20 05/13/17 21:22 BP 112/57 05/13/17 21:22 Pulse Ox 97 05/13/17 21:22 - Additional Comments Vital Signs Reviewed: Yes General: well developed, well nourished thin female sitting in the examining table w/o any apparent distress Eyes: Positive: Conjunctiva Clear - PERRLA, EOMI, fundi grossly normal ENT: Positive: Normal ENT inspection, Hearing grossly normal, Pharynx normal, Nasal congestion - edematous and erythematous nasal mucosa, No nasal drainage observed, TMs normal. Negative: Tonsillar swelling, Tonsillar exudate Neck: Positive: Supple, Nontender, No Lymphadenopathy Respiratory: no orthopnea or dyspnea. Able to speak in full sentences, no retractions or accessory muscle use, no tripod position, stridor, or head bobbing. mild wheezing in the left lateral posterior lung, mild rhonchi, no rales or crackles Cardiovascular: Positive: RRR, No Murmur, Pulses Normal, Brisk Capillary Refill Abdomen Description: Positive: Nontender, No Organomegaly, Soft. Negative: CVA Tenderness (R), CVA Tenderness (L) Bowel Sounds: Positive: Present Musculoskeletal Exam: Normal Musculoskeletal: Positive: Strength Intact, ROM Intact, No Edema Neurological Exam: Normal Psychological Exam: Normal Skin Exam: Normal Diagnostic Evaluation - Laboratory O2 Sat by Pulse Oximetry: 97 Respiratory Course/Dx - Course Course Of Treatment: 71 y/o female PMHX of Brast cancer, pancreatic CA s/p whipple surgery 2014 presents to the urgent care accompany by c/o SOB, productive cough with wheezing and weakness 05/11/2017. Pt reports she was recently at the [facility] for N/V/D and D/C home with Zofran PO. Pt reports diarrhea and vomiting resolved on Thursday. But her daughter was Dx with Bronchitis and she thinks she caught up the cough from her. Pt states she is producing a white/tabor phlegm. She has been taking cough drops to alleviate symptoms. Pt denies fever, chest pain, abdominal pain, N/V/D, urinary symptoms.Hx obtained. Pt with mild rhonchi and wheezing on examination. Pt recently had a chest X-ray at [facility]. X-ray:negative for - Differential Dx/Diagnosis Differential Diagnosis/HQI/PQRI: Asthma, Bronchitis, Influenza, Lower Resp Infection, Other - pneumonia Provider Diagnoses: 1-Acute bronchitis. 2-Cough, dyspnea. 3-Wheezing - Physician Notification/Consults Discussed Patient Care With: Joshua Jennings - Dr Jennings agreed with PT's plan of care Discharge - Discharge Plan Condition: Stable Disposition: HOME Prescriptions: Albuterol 2.5MG/3ML (0.083%)* [Ventolin 2.5 MG/3 ML NEB.JOSE*] 2.5 mg INH Q6H #1 lyndsey Benzonatate CAP* [Tessalon 100 MG CAP*] 100 mg PO TID #15 cap predniSONE TAB* [Deltasone TAB*] 20 mg PO DAILY #8 tab Patient Education Materials: Acute Bronchitis (ED), Dyspnea (ED), Bronchospasm (ED) Referrals: Jen Mcgee MD [Primary Care Provider] - 2 Days Additional Instructions: 1-Please take Prednisone PO as directed . You got first dose today 2-Take Tessalon PO tabs as directed and use the albuterol inhaler to alleviate cough. Increase fluid intake, take Pedialyte PO a teaspoon q2hrs, rest and eat small portions well. 3- If symptoms do not improve or worsen or your develop SOB with fever and severe wheezing please go immediately to the ER further evaluation and treatment. 4- F/u with your PCP in 2-3 days for further management
== END 2017-05-13 22:29 | disposition home or self-care (01) ==
LOC: UCCORT 21:11
DX: J20.9 Acute bronchitis, unspecified (principal); R05 Cough; R06.00 Dyspnea, unspecified; R06.2 Wheezing; Z85.3 Personal history of malignant neoplasm of breast; Z85.07 Personal history of malignant neoplasm of pancreas; Z87.891 Personal history of nicotine dependence
CPT/HCPCS: 99212; G0463; J7512

== ENCOUNTER 2018-08-30 19:46 | Emergency (ER) | payer OTHER, MEDICARE ==
[2018-08-30 20:29] VITALS: BP 102/68
[2018-08-30 20:49] LABS: Influenza A Molecular NEGATIVE (Negative); Influenza B Molecular NEGATIVE (Negative)
--- NOTE | 2018-08-30 20:52 | UC ---
FLU HPI - HPI Summary HPI Summary: Pt with 4 days head cngstion, sinus pressure, pnd, green secretions, tactile temp and myalgia. + cough, no sob, cp Pt has used OTC meds with mild improvement. + dental pain Pt s/p whipple - no current chemo Medications reviewed this visit - History of Current Complaint Chief Complaint: UCGeneralIllness Stated Complaint: SNOW,ST,COUGH,CONGESTION,TIRED Time Seen by Provider: 08/30/18 20:50 Hx Obtained From: Patient Pain Intensity: 5 - Allergy/Home Medications Allergies/Adverse Reactions: Allergies Allergy/AdvReac Type Severity Reaction Status Date / Time No Known Allergies Allergy Verified 04/26/18 13:33 PMH/Surg Hx/FS Hx/Imm Hx Previously Healthy: Yes Endocrine History: Diabetes Cardiovascular History: Hypertension Cancer History: Other - pancreatic - Surgical History Surgical History: Yes Surgery Procedure, Year, and Place: mitch, 3 c-sections, right breast lumpectomy , Whipple surgery 07/17/2014 - Family History Known Family History: Positive: Cardiac Disease, Hypertension, Diabetes, Other - No FHx of Ebola - Social History Occupation: Unemployed Lives: With Family Alcohol Use: None Substance Use Type: None Substance Use Comment - Amount & Last Used: vicodin po Smoking Status (MU): Former Smoker Type: Cigarettes Amount Used/How Often: 1/2 PPD for 5 years Length of Time of Smoking/Using Tobacco: 5 years Have You Smoked in the Last Year: No When Did the Patient Quit Smoking/Using Tobacco: 20 YRS AGO - Immunization History Most Recent Influenza Vaccination: fall 2015 Most Recent Tetanus Shot: up to date Most Recent Pneumonia Vaccination: 05/05/14 Review of Systems All Other Systems Reviewed And Are Negative: Yes Constitutional: Positive: Fatigue Skin: Positive: Negative Eyes: Positive: Negative ENT: Positive: Sore Throat, Ear Ache, Nasal Discharge, Sinus Congestion, Sinus Pain/Tenderness Respiratory: Positive: Cough Musculoskeletal: Positive: Myalgia Physical Exam - Summary Physical Exam Summary: Vital Signs Reviewed: Yes A+Ox3, no distress Eyes: Conjunctiva Clear, CORTES. EOM intact and full ENT: Hearing grossly normal TM x 2 + fluid R>L, turbinates inflammed and boggy , + pnd, + TTP max sinuses R>L mmoist, uvula midline, no exudate, no erythema Neck: Positive: Supple Respiratory: Positive: No respiratory distress, No accessory muscle use + CTA throughout no w/r Cardiovascular: RRR nl s1, s2 no m/r CBT <2 sec abd soft + BS nt/nd no guarding, no distension Musculoskeletal Exam: RICHARDS x 4 without difficulty Strength Intact, ROM Intact Neurological: Positive: Alert, + sensation throughout Psychological: Positive: Normal Response To Family Skin: Positive: no rash, no ecchymosis Vital Signs: Initial Vital Signs Temp 98.5 F 08/30/18 20:25 Pulse 62 08/30/18 20:25 Resp 16 08/30/18 20:25 BP 102/68 08/30/18 20:25 Pulse Ox 99 08/30/18 20:25 Flu Course/Dx - Course Course Of Treatment: Pt with progressive sinus pressure, ear fullness, actile temp, PND and cough. VSS. exam c/w sinusitis, head congestion. influenza neg. Rx abx. flonase. hydrate. humifidy air. secretion precaution. return precaution - Differential Dx/Diagnosis Provider Diagnosis: Rhinosinusitis Discharge - Sign-Out/Discharge Documenting (check all that apply): Patient Departure All imaging exams completed and their final reports reviewed: No Studies - Discharge Plan Condition: Stable Disposition: HOME Prescriptions: Amoxicillin PO (*) [Amoxicillin 500 MG CAP*] 500 mg PO Q12H #14 cap Fluticasone NASAL SPRAY 50MCG* [Flonase NASAL SPRAY 50MCG*] 2 spray BOTH NARES DAILY #1 btl Patient Education Materials: Sinusitis (ED), Upper Respiratory Infection (ED) Referrals: Tristan SUTTON,Thor Nixon [Primary Care Provider] - Additional Instructions: - Stay well hydrated. Drink plenty of non-alcoholic, non-caffinated beverages. - Alternate ibuprofen (Advil, Motrin) 600mg and Tylenol every 3 hours for pain or fever. Take with food. Do NOT take for more than 4-5 days. - These infections are spread by secretions - do NOT share eating or drinking utensils - clean items you share with other people such as cell phones, computer mouse, TV remote, computer tablets,etc. Once you start to feel better , change your toothbrush and your pillowcase. - get plenty of restful sleep - humidify the air in the room where you sleep - boil water, run a hot steam shower, vaporizer, cups of water by heat register - humidify the air in your CPAP machine - okay to take over the counter decongestant and cough medication - use nasal spray as prescribed - If you continue to have facial pressure, post nasal drip and congestion, start antibiotics as prescribed on Thursday. It is recommended you take probiotics and eat yogurt while taking antibiotics - contact your doctor or return with questions or concerns - Billing Disposition and Condition Condition: STABLE Disposition: Home
== END 2018-08-30 21:15 | disposition home or self-care (01) ==
LOC: UCCORT 19:46
DX: Z87.891 Personal history of nicotine dependence (principal); J32.9 Chronic sinusitis, unspecified
CPT/HCPCS: 99212; G0463

== ENCOUNTER 2019-04-04 06:53 | Day surgery (SDC) | payer OTHER, MEDICARE ==
[2019-04-04] MEDS ORDERED: Midazolam* 1 MG/ML 2 ML VIAL (2 MG) ONE ×2 (08:11→08:25)
[2019-04-04 09:05] VITALS: BP 115/62
[2019-04-04] MEDS ORDERED: Lidocaine 1% MPF ** 5 ML VIAL ONE (09:23)
[2019-04-04] MEDS ORDERED: Phenylephrine OPHTH SOL 2.5%* 2 ML ONE (09:23)
[2019-04-04] MEDS ORDERED: Tetracaine 0.5% OPTH.SOL 4 ML* 1 DROP BTL ONE (09:23)
[2019-04-04] MEDS ORDERED: Neomycin/Polymy/Dex OPHTH.OIN* 3.5 GM ONE (09:23)
[2019-04-04] MEDS ORDERED: Cyclopentolate 1% OPTH.SOL* 2 ML BTL ONE (09:23)
[2019-04-04] MEDS ORDERED: Ketorolac 0.5% OPHTH (NF) 0.5 % 5 ML BTL ONE (09:23)
[2019-04-04] MEDS ORDERED: Tropicamide 1% OPTH.SOL* BTL ONE (09:23)
[2019-04-04] MEDS ORDERED: acetaZOLAMIDE TAB* 250 MG ONE (09:23)
[2019-04-04] MEDS ORDERED: Povidone Iodine 5% OPTH* 30 ML BTL ONE (09:23)
--- NOTE | 2019-04-04 16:55 | OP ---
DATE OF OPERATION: 04/04/19 [facility] DATE OF : 47 SURGEON: Americo Anguiano MD ANESTHESIA: Monitored anesthesia care. PREOPERATIVE DIAGNOSIS: Cataract, left eye. POSTOPERATIVE DIAGNOSIS: Cataract, left eye. OPERATIVE PROCEDURE: Extracapsular cataract extraction of the left eye with intraocular lens implant. IMPLANTS: SN6AT8 18.5 diopter lens to the left eye at 90 degrees. COMPLICATIONS: None. DESCRIPTION OF PROCEDURE: The patient was given phenylephrine 2.5% and cyclopentolate 1% eye drops to the operative eye in the preoperative area. The patient was sat in the upright position and corneal markings were placed at 0 and 180 degrees. The patient was taken to the operating room where a time-out was taken to identify the correct patient, site, and side of surgery. The patient's left eye was prepped and draped in the usual sterile fashion with 5% Betadine. A second time-out was taken to verify the correct patient, site, and side of surgery and correct lens selection. A lid speculum was placed to the left eye. Corneal markings were placed at the 87-degree meridian for toric lens placement. A 1 mm paracentesis blade was used to make a clear corneal incision in the inferotemporal position. Preservative-free 1% lidocaine was injected into the anterior chamber. DisCoVisc was then injected into the anterior chamber. A 2.75 mm keratome blade was used to make a triplanar incision at the superotemporal position. A cystotome initiated a capsulorrhexis , which was completed with Utrata forceps in a continuous and curvilinear manner. Hydrodissection of the lens was performed with BSS on a cannula. The lens could be spun in the capsular bag. The phacoemulsification handpiece was used with a [id number] technique to remove the nucleus. The I/A handpiece then removed the residual cortical lens material. Provisc was then injected to inflate the capsular bag. The ORA system was then used to confirm correct lens selection. Based upon ORA measurements, the SN6AT8 18.5 diopter lens was injected into the capsular bag and rotated to 90 degrees. The residual Provisc was removed from the eye with the I/A handpiece. The corneal incisions were hydrated and no leaks occurred at physiologic pressure around 20 mmHg per palpation. The lid speculum was removed and drapes were removed. Maxitrol ointment was placed to the surface of the operative eye. An adhesive patch and shield was then placed on the operative eye. The patient was taken to the post-operative area in stable condition. [id number]/[facility] #: [id number] MTDD
== END 2019-04-04 09:15 | disposition home or self-care (01) ==
LOC: OREAST 06:53
PROVIDERS: ATTEND Student in an Organized Health Care Education/Training Program
DX: H25.812 Combined forms of age-related cataract, left eye (principal); E11.9 Type 2 diabetes mellitus without complications; Z79.84 Long term (current) use of oral hypoglycemic drugs; Z87.891 Personal history of nicotine dependence; C25.9 Malignant neoplasm of pancreas, unspecified; K21.9 Gastro-esophageal reflux disease without esophagitis; R60.9 Edema, unspecified
CPT/HCPCS: A9270-GY; J2250; V2787

== ENCOUNTER 2019-07-15 12:20 | Emergency (ER) | payer OTHER, MEDICARE ==
[2019-07-15 12:46] VITALS: BP 115/79
--- NOTE | 2019-07-15 13:19 | UC ---
Respiratory Complaint HPI - HPI Summary HPI Summary: Pt presents with c/o chest congestion, cough X 2 weeks. Pt has hx of breast and pancreatic cancer. Dr. Kauffman is pt's oncologist. Pt has been out of treatment for cnacer X 5 years. - History of Current Complaint Chief Complaint: UCRespiratory Stated Complaint: LOW ENERGY,COUGH Time Seen by Provider: 07/15/19 13:08 Hx Obtained From: Patient ?: No Onset/Duration: Gradual Onset, Lasting Weeks, Still Present Timing: Intermittent Episodes Severity Initially: Mild Severity Currently: Moderate Pain Intensity: 0 Character: Cough: Nonproductive Aggravating Factors: Deep Breaths, Recumbent Position Associated Signs And Symptoms: Positive: URI, Nasal Congestion - Risk Factors Pulmonary Embolism Risk Factors: Malignancy Cardiac Risk Factors: Negative Pseudomonas Risk Factors: Negative Tuberculosis Risk Factors: Negative - Allergies/Home Medications Allergies/Adverse Reactions: Allergies Allergy/AdvReac Type Severity Reaction Status Date / Time No Known Allergies Allergy Verified 04/04/19 07:54 Home Medications: Home Medications Atorvastatin* [Lipitor 40 MG*] 40 mg PO DAILY 07/15/19 [History Confirmed ] Guaifenesin/Dextromethorphan [Robitussin Cough-Chest Dm Liq] 1 liq PO Q4H PRN [History Confirmed 07/15/19] Ondansetron ODT TAB* [Zofran 4 MG Odt TAB*] 4 mg PO SEE INSTRUCTIONS PRN [History Confirmed 07/15/19] Oxycodone HCl 5 mg PO SEE INSTRUCTIONS PRN 07/15/19 [History Confirmed 07/15/19] PMH/Surg Hx/FS Hx/Imm Hx Previously Healthy: Yes Cancer History: Breast Cancer, Other - pancreatic - Surgical History Surgical History: Yes Surgery Procedure, Year, and Place: [place], 3 c-sections, right breast lumpectomy , Whipple surgery 07/17/2014 - Family History Known Family History: Positive: Cardiac Disease, Hypertension, Diabetes, Other - No FHx of Ebola - Social History Occupation: Retired Lives: With Family Alcohol Use: None Substance Use Type: None Substance Use Comment - Amount & Last Used: vicodin po Smoking Status (MU): Former Smoker Type: Cigarettes Amount Used/How Often: 1/2 PPD for 5 years Length of Time of Smoking/Using Tobacco: 5 years Have You Smoked in the Last Year: No When Did the Patient Quit Smoking/Using Tobacco: mid 1980s - Immunization History Most Recent Influenza Vaccination: fall 2015 Most Recent Tetanus Shot: up to date Most Recent Pneumonia Vaccination: 05/05/14 Vaccination Up to Date: Yes Review of Systems All Other Systems Reviewed And Are Negative: Yes Constitutional: Positive: Chills Skin: Positive: Negative Eyes: Positive: Negative ENT: Positive: Sinus Congestion Respiratory: Positive: Cough Cardiovascular: Positive: Negative Gastrointestinal: Positive: Negative Genitourinary: Positive: Negative Motor: Positive: Negative Neurovascular: Positive: Negative Musculoskeletal: Positive: Negative Neurological: Positive: Negative Psychological: Positive: Negative Is Patient Immunocompromised?: No Physical Exam Triage Information Reviewed: Yes Appearance: Well-Appearing Vital Signs: Initial Vital Signs Temp 97.8 F 07/15/19 12:38 Pulse 68 07/15/19 12:38 Resp 24 07/15/19 12:38 BP 115/79 07/15/19 12:38 Pulse Ox 98 07/15/19 12:38 Vital Signs Reviewed: Yes Eye Exam: Normal ENT: Positive: Nasal congestion Dental Exam: Normal Neck exam: Normal Respiratory Exam: Other - upper respiratory congestion Cardiovascular Exam: Normal Musculoskeletal Exam: Normal Neurological Exam: Normal Psychological Exam: Normal Skin Exam: Normal Respiratory Course/Dx - Differential Dx/Diagnosis Differential Diagnosis/HQI/PQRI: Bronchitis, Influenza, Lower Resp Infection Provider Diagnosis: Viral syndrome Discharge ED - Sign-Out/Discharge Documenting (check all that apply): Patient Departure All imaging exams completed and their final reports reviewed: No Studies - Discharge Plan Condition: Stable Disposition: HOME Prescriptions: Albuterol HFA INHALER* [Ventolin HFA Inhaler*] 1 - 2 puff INH Q6H PRN #1 mdi PRN Reason: Sob/Wheezing Benzonatate CAP* [Tessalon 100 MG CAP*] 100 mg PO Q8H PRN #30 cap PRN Reason: Cough predniSONE 20 mg TAB [Deltasone 20 MG TAB*] 60 mg PO DAILY #12 tab Patient Education Materials: Viral Syndrome (ED), Acute Cough (ED) Referrals: Woody Kauffman MD [Medical Doctor] - If Needed Thor Hudson MD [Primary Care Provider] - If Needed - Billing Disposition and Condition Condition: STABLE Disposition: Home
== END 2019-07-15 13:56 | disposition home or self-care (01) ==
LOC: UCCORT 12:20
DX: B34.9 Viral infection, unspecified (principal); R09.81 Nasal congestion; R05 Cough; Z85.3 Personal history of malignant neoplasm of breast; Z85.07 Personal history of malignant neoplasm of pancreas; Z87.891 Personal history of nicotine dependence
CPT/HCPCS: 71046; 99212; G0463

== ENCOUNTER 2020-10-16 10:10 | Inpatient (IN) ==
[2020-10-16 11:15] LABS: ABS Lymphocytes 0.2 10^3/ul (1.0-4.8); Eosinophil % 1.1 %; Hematocrit 32 % (35-47); Hemoglobin 10.2 g/dL (12.0-16.0); Lymphocyte % 6.5 %; Mean Corpuscular HGB Conc 33 g/dL (31-36); Mean Corpuscular Hemoglobin 29 pg (27-31); Mean Corpuscular Volume 88 fL (80-97); Mean Platelet Volume 8.3 fL (7.4-10.4); Platelet Count 140 10^3/uL (150-450); Red Blood Count 3.59 10^6 /uL (3.70-4.87); Red Cell Distribution Width 16 % (10-15); White Blood Count 3.2 10^3/uL (3.5-10.8)
[2020-10-16 11:17] LABS: Activated Partial Thrombo Time 26.4 seconds (26.0-38.0); INR 1.21 (0.82-1.09)
[2020-10-16 11:26] LABS: ALT 38 U/L (7-52); AST 47 U/L (13-39); Albumin 3.3 g/dL (3.2-5.2); Albumin/Globulin Ratio 1.2 (1-3); Alkaline Phosphatase 114 U/L (34-104); Anion Gap 10 mmol/L (2-11); Blood Urea Nitrogen 18 mg/dL (6-24); C Reactive Protein 153.54 mg/L (<8.01); CO2 Carbon Dioxide 22 mmol/L (22-32); Calcium 8.7 mg/dL (8.6-10.3); Chloride 106 mmol/L (101-111); EGFR African American 70.4 (>60); EGFR Non-African American 58.2 (>60); Globulin 2.7 g/dL (2-4); Glucose 142 mg/dL (70-100); Potassium 4.3 mmol/L (3.5-5.0); Sodium 138 mmol/L (135-145)
[2020-10-16 11:31] LABS: Troponin I 0.14 ng/mL (<0.03)
[2020-10-16] MEDS: NS 0.9% 1000 ml BAG 1,000 ML IV.FLUID IV ONE ×2 (11:39→12:19)
[2020-10-16] MEDS ORDERED: DOXYcycline 100 MG in NS 0.9% 250 ml 250 ML IVPB ONE (11:44)
[2020-10-16 12:02] LABS: Creatine Kinase 54 U/L (10-223)
[2020-10-16] MEDS ORDERED: Iodixanol (CONTRAST) 320 MG/ML 100 ML SDV IV ONE (12:06)
[2020-10-16 12:33] LABS: Urine Appearance Clear; Urine Bilirubin Negative (Negative); Urine Blood 1+ (Negative); Urine Color Yellow; Urine Glucose Negative (Negative); Urine Ketones Trace (Negative); Urine Nitrite Negative (Negative); Urine Protein Negative (Negative); Urine Specific Gravity 1.011 (1.002-1.030); Urine Urobilinogen Negative (Negative)
[2020-10-16 12:38] LABS: Urine Bacteria Absent (Absent); Urine Red Blood Cell Trace(0-2/hpf) (Absent); Urine Squamous Epithelial Cell Present (Absent); Urine White Blood Cell Trace(0-5/hpf) (Absent)
[2020-10-16] MEDS ORDERED: NS 0.9% 1000 ml BAG 1,000 ML IV SCH (13:15)
[2020-10-16] MEDS ORDERED: Dextrose 50% Syringe 50 ml 25 GM/50 ML SYRINGE IV PUSH PRN (14:48)
[2020-10-16] MEDS ORDERED: Ondansetron 4 mg VIAL 2 MG/ML 2 ml VIAL IV PRN (14:50)
[2020-10-16] MEDS ORDERED: Al Hydrox/Mg Hydrox/Simet LIQ 30 ML UDC PO PRN (14:50)
[2020-10-16] MEDS ORDERED: Zosyn per Pharmacy NOTE FOLLOW UP SCH (15:00)
[2020-10-16 15:46] LABS: Troponin I 1.09 ng/mL (<0.03)
[2020-10-16] MEDS ORDERED: ZOSYN 3.375 GM x ONE DOSE over 30 miuntes IV (16:30)
[2020-10-16] MEDS: Enoxaparin 40 MG/0.4 ML SYR SUBCUT SCH (17:15)
[2020-10-16] MEDS: Cholecalciferol (VIT D3) 1,000 unit TAB PO SCH (17:15)
[2020-10-16] MEDS: NS 0.9% 1000 ml BAG 1,000 ML IV SCH (17:22)
[2020-10-16] MEDS: Pancrelipase 5,000 units CAP PO SCH ×2 (17:57→19:59)
[2020-10-16 18:00] LABS: Troponin I 0.96 ng/mL (<0.03)
[2020-10-16] MEDS: DOXYcycline 100 MG in NS 0.9% 250 ml 250 ML IVPB SCH (19:58)
[2020-10-16] MEDS ORDERED: ZOSYN 3.375 GM Q8H per EXTENDED INFUSION IV SCH (22:00)
[2020-10-17] MEDS: NS 0.9% 1000 ml BAG 1,000 ML IV SCH (05:40)
[2020-10-17 06:01] LABS: ABS Eosinophils 0.1 10^3/ul (0-0.6); ABS Lymphocytes 0.8 10^3/ul (1.0-4.8); ABS Monocytes 0.3 10^3/ul (0-0.8); ABS Neutrophils 6.8 10^3/ul (1.5-7.7); Eosinophil % 1.2 %; Hematocrit 26 % (35-47); Hemoglobin 8.6 g/dL (12.0-16.0); Lymphocyte % 9.8 %; Mean Corpuscular HGB Conc 33 g/dL (31-36); Mean Corpuscular Hemoglobin 29 pg (27-31); Mean Corpuscular Volume 88 fL (80-97); Mean Platelet Volume 8.3 fL (7.4-10.4); Nucleated Red Blood Cells % 0.1; Platelet Count 105 10^3/uL (150-450); Red Blood Count 2.96 10^6 /uL (3.70-4.87); Red Cell Distribution Width 16 % (10-15); White Blood Count 8.1 10^3/uL (3.5-10.8)
[2020-10-17 06:20] LABS: Albumin 2.7 g/dL (3.2-5.2); Albumin/Globulin Ratio 1.2 (1-3); Calcium 7.4 mg/dL (8.6-10.3); EGFR African American 66.3 (>60); EGFR Non-African American 54.8 (>60); Globulin 2.3 g/dL (2-4); Potassium 3.6 mmol/L (3.5-5.0); Total Bilirubin 0.5 mg/dL (0.2-1.0)
[2020-10-17] MEDS ORDERED: Perflutren Lipid Microsphere 3 ML VIAL ONE (08:06)
[2020-10-17] MEDS: Pancrelipase 5,000 units CAP PO SCH ×5 (08:37→20:09)
[2020-10-17] MEDS: Cholecalciferol (VIT D3) 1,000 unit TAB PO SCH (09:19)
[2020-10-17] MEDS: DOXYcycline 100 MG in NS 0.9% 250 ml 250 ML IVPB SCH (09:20)
[2020-10-17 10:13] LABS: Troponin I 0.94 ng/mL (<0.03)
[2020-10-17] MEDS: Enoxaparin 40 MG/0.4 ML SYR SUBCUT SCH (16:05)
[2020-10-17] MEDS: Cefepime 2 GM in Dextrose 2 GM/50 ML BAG IV SCH (16:19)
[2020-10-17 18:56] LABS: Cholesterol 70 mg/dL; HDL Cholesterol 18.1 mg/dL; LDL Cholesterol 23 mg/dL; Triglycerides 146 mg/dL
[2020-10-18 07:45] LABS: ABS Eosinophils 0.1 10^3/ul (0-0.6); ABS Lymphocytes 0.9 10^3/ul (1.0-4.8); ABS Monocytes 0.5 10^3/ul (0-0.8); Eosinophil % 1.7 %; Hematocrit 26 % (35-47); Hemoglobin 8.5 g/dL (12.0-16.0); Lymphocyte % 13.4 %; Mean Corpuscular HGB Conc 34 g/dL (31-36); Mean Corpuscular Hemoglobin 29 pg (27-31); Mean Corpuscular Volume 86 fL (80-97); Mean Platelet Volume 9.3 fL (7.4-10.4); Nucleated Red Blood Cells % 0.1; Platelet Count 114 10^3/uL (150-450); Red Blood Count 2.97 10^6 /uL (3.70-4.87); Red Cell Distribution Width 16 % (10-15); White Blood Count 6.6 10^3/uL (3.5-10.8)
[2020-10-18 08:23] LABS: Blood Urea Nitrogen 15 mg/dL (6-24); CO2 Carbon Dioxide 21 mmol/L (22-32); EGFR African American 66.3 (>60); EGFR Non-African American 54.8 (>60); Glucose 113 mg/dL (70-100); Potassium 3.5 mmol/L (3.5-5.0); Sodium 140 mmol/L (135-145)
[2020-10-18 08:24] LABS: Anion Gap 7 mmol/L (2-11); Chloride 112 mmol/L (101-111)
[2020-10-18] MEDS ORDERED: Potassium Chlor 20 meq TAB.ER PO ONE (09:06)
[2020-10-18] MEDS: Pancrelipase 5,000 units CAP PO SCH ×4 (09:27→20:33)
[2020-10-18] MEDS: Cefepime 2 GM in Dextrose 2 GM/50 ML BAG IV SCH ×2 (09:29→19:09)
[2020-10-18 09:30] LABS: Magnesium 1.6 mg/dL (1.9-2.7)
[2020-10-18 09:33] LABS: Troponin I 0.43 ng/mL (<0.03)
[2020-10-18] MEDS: Cholecalciferol (VIT D3) 1,000 unit TAB PO SCH (09:41)
[2020-10-18] MEDS ORDERED: Magnesium Sulfate IV 3 GM in NS 0.9% 100 ml BAG 100 ML IVPB ONE (10:30)
[2020-10-18] MEDS ORDERED: Midazolam 10 mg/10 ml VIAL 1 mg/ml 10 ml VIAL (10 mg) ONE (14:56)
[2020-10-18] MEDS ORDERED: fentaNYL 100 mcg/2 ml 50 MCG/ML VIAL ONE (14:57)
[2020-10-18 16:57] LABS: Folate 10.99 ng/mL (5.90-24.80)
[2020-10-18 16:58] LABS: Vitamin B12 486 pg/mL (180-914)
[2020-10-18] MEDS: Enoxaparin 40 MG/0.4 ML SYR SUBCUT SCH (18:03)
[2020-10-18 23:01] LABS: Anaplasma phagocytophilum Negative (Negative); B. miyamotoi PCR, B Negative (Negative); Babesia divergens/MO-1 Negative (Negative); Babesia ducani Negative (Negative); Ehrlichia chaffeensis Negative (Negative); Ehrlichia ewingii/canis Negative (Negative); Ehrlichia muris eauclairensis Negative (Negative)
[2020-10-19] MEDS: Cefepime 2 GM in Dextrose 2 GM/50 ML BAG IV SCH (05:04)
[2020-10-19 06:36] LABS: ABS Eosinophils 0.1 10^3/ul (0-0.6); ABS Lymphocytes 0.8 10^3/ul (1.0-4.8); ABS Monocytes 0.4 10^3/ul (0-0.8); Eosinophil % 2.3 %; Hematocrit 24 % (35-47); Lymphocyte % 19.4 %; Mean Corpuscular HGB Conc 33 g/dL (31-36); Mean Corpuscular Hemoglobin 29 pg (27-31); Mean Corpuscular Volume 86 fL (80-97); Mean Platelet Volume 8.8 fL (7.4-10.4); Nucleated Red Blood Cells % 0.1; Platelet Count 136 10^3/uL (150-450); Red Blood Count 2.78 10^6 /uL (3.70-4.87); Red Cell Distribution Width 16 % (10-15); White Blood Count 4.3 10^3/uL (3.5-10.8)
[2020-10-19 06:52] LABS: Calcium 7.9 mg/dL (8.6-10.3); EGFR African American 73.1 (>60); EGFR Non-African American 60.4 (>60); Magnesium 1.9 mg/dL (1.9-2.7); Potassium 3.8 mmol/L (3.5-5.0)
[2020-10-19] MEDS: Pancrelipase 5,000 units CAP PO SCH (08:04)
[2020-10-19] MEDS: Cholecalciferol (VIT D3) 1,000 unit TAB PO SCH (08:05)
[2020-10-19 08:23] VITALS: BP 145/58
[2020-10-19 11:31] LABS: Carcinoembryonic Antigen 2.4 ng/mL (0.1-5.0)
== END 2020-10-19 09:14 | disposition home or self-care (01) | DRG 720 ==
LOC: ED 10:10 → MEDTELE 14:50
PROVIDERS: ADMIT Hospitalist; ATTEND Hospitalist

== ENCOUNTER 2020-11-06 12:42 | Inpatient (IN) ==
[2020-11-06] MEDS ORDERED: NS 0.9% 1000 ml BAG 1,000 ML IV ONE ×2 (13:14→15:37)
[2020-11-06 13:57] LABS: ABS Lymphocytes 0.9 10^3/ul (1.0-4.8); ABS Monocytes 0.7 10^3/ul (0-0.8); ABS Neutrophils 8.7 10^3/ul (1.5-7.7); Eosinophil % 0.1 %; Hematocrit 33 % (35-47); Lymphocyte % 8.9 %; Mean Corpuscular HGB Conc 34 g/dL (31-36); Mean Corpuscular Hemoglobin 29 pg (27-31); Mean Corpuscular Volume 86 fL (80-97); Platelet Count 162 10^3/uL (150-450); Red Cell Distribution Width 16 % (10-15); White Blood Count 10.3 10^3/uL (3.5-10.8)
[2020-11-06 14:14] LABS: Potassium 4.7 mmol/L (3.5-5.0)
[2020-11-06 14:15] LABS: Albumin 3.6 g/dL (3.2-5.2); Albumin/Globulin Ratio 1.4 (1-3); Calcium 8.7 mg/dL (8.6-10.3); EGFR African American 68.7 (>60); EGFR Non-African American 56.8 (>60); Globulin 2.5 g/dL (2-4); Total Bilirubin 0.5 mg/dL (0.2-1.0); Total Protein 6.1 g/dL (6.4-8.9)
[2020-11-06] MEDS ORDERED: Cefepime 2 GM in Dextrose 2 GM/50 ML BAG IV ONE (14:45)
[2020-11-06] MEDS ORDERED: Pantoprazole VIAL 40 MG VIAL IV ONE (16:45)
[2020-11-06] MEDS ORDERED: Iodixanol (CONTRAST) 320 MG/ML 100 ML SDV IV ONE (17:07)
[2020-11-06] MEDS ORDERED: Vancomycin 1,000 MG in NS 0.9% 250 ml 250 ML IVPB ONE (17:15)
[2020-11-06] MEDS ORDERED: Dextrose 50% Syringe 50 ml 25 GM/50 ML SYRINGE IV PUSH PRN (17:33)
[2020-11-06] MEDS: Lactated Ringers 1000 ml BAG 1,000 ML IV SCH (18:27)
[2020-11-06 18:38] LABS: Urine Appearance Clear; Urine Bilirubin Negative (Negative); Urine Blood Negative (Negative); Urine Color Straw; Urine Glucose Negative (Negative); Urine Ketones Negative (Negative); Urine Nitrite Negative (Negative); Urine Protein Negative (Negative); Urine Specific Gravity 1.009 (1.002-1.030); Urine Urobilinogen Negative (Negative)
[2020-11-06] MEDS: Pancrelipase 5,000 units CAP PO SCH (22:24)
[2020-11-06] MEDS: Pantoprazole VIAL 40 MG VIAL IV SCH (22:26)
[2020-11-07 00:23] LABS: Hematocrit 27 % (35-47); Hemoglobin 9.2 g/dL (12.0-16.0)
[2020-11-07] MEDS ORDERED: Cefepime 2 GM in Dextrose 2 GM/50 ML BAG IV SCH (04:00)
[2020-11-07] MEDS: Lactated Ringers 1000 ml BAG 1,000 ML IV SCH (05:27)
[2020-11-07 05:43] LABS: ABS Eosinophils 0.1 10^3/ul (0-0.6); ABS Lymphocytes 1.1 10^3/ul (1.0-4.8); ABS Monocytes 0.4 10^3/ul (0-0.8); ABS Neutrophils 4.6 10^3/ul (1.5-7.7); Hematocrit 26 % (35-47); Hemoglobin 8.7 g/dL (12.0-16.0); Mean Corpuscular HGB Conc 33 g/dL (31-36); Mean Corpuscular Hemoglobin 29 pg (27-31); Mean Corpuscular Volume 88 fL (80-97); Mean Platelet Volume 9.1 fL (7.4-10.4); Platelet Count 119 10^3/uL (150-450); Red Blood Count 2.98 10^6 /uL (3.70-4.87); Red Cell Distribution Width 16 % (10-15); White Blood Count 6.2 10^3/uL (3.5-10.8)
[2020-11-07 05:57] LABS: Albumin 2.8 g/dL (3.2-5.2); Potassium 3.8 mmol/L (3.5-5.0); Total Bilirubin 0.2 mg/dL (0.2-1.0)
[2020-11-07 06:03] LABS: Albumin/Globulin Ratio 1.3 (1-3); C Reactive Protein 71.95 mg/L (<8.01); EGFR African American 70.4 (>60); EGFR Non-African American 58.2 (>60); Globulin 2.1 g/dL (2-4); Total Protein 4.9 g/dL (6.4-8.9)
[2020-11-07] MEDS ORDERED: Vancomycin 750 MG in NS 0.9% 250 ML IVPB SCH (08:00)
[2020-11-07] MEDS: Pantoprazole VIAL 40 MG VIAL IV SCH ×2 (08:06→22:07)
[2020-11-07] MEDS: Cholecalciferol (VIT D3) 1,000 unit TAB PO SCH (08:15)
[2020-11-07] MEDS: Pancrelipase 5,000 units CAP PO SCH ×4 (08:15→22:07)
[2020-11-07] MEDS ORDERED: Omeprazole 20 mg CAP (NF) PO SCH (09:00)
[2020-11-07 09:19] LABS: Hematocrit 28 % (35-47); Hemoglobin 9.3 g/dL (12.0-16.0)
[2020-11-07] MEDS: Cefepime 1 GM in Dextrose 1 GM/50 ML BAG IV SCH (16:03)
[2020-11-07 16:17] LABS: Hematocrit 31 % (35-47); Hemoglobin 9.8 g/dL (12.0-16.0)
[2020-11-08] MEDS: Cefepime 1 GM in Dextrose 1 GM/50 ML BAG IV SCH ×2 (05:07→17:00)
[2020-11-08 05:17] LABS: ABS Eosinophils 0.1 10^3/ul (0-0.6); ABS Lymphocytes 0.9 10^3/ul (1.0-4.8); ABS Monocytes 0.6 10^3/ul (0-0.8); ABS Neutrophils 4.8 10^3/ul (1.5-7.7); Eosinophil % 1.1 %; Hematocrit 29 % (35-47); Hemoglobin 9.6 g/dL (12.0-16.0); Lymphocyte % 13.7 %; Mean Corpuscular HGB Conc 33 g/dL (31-36); Mean Corpuscular Hemoglobin 29 pg (27-31); Mean Corpuscular Volume 87 fL (80-97); Mean Platelet Volume 9.1 fL (7.4-10.4); Platelet Count 118 10^3/uL (150-450); Red Blood Count 3.33 10^6 /uL (3.70-4.87); Red Cell Distribution Width 16 % (10-15); White Blood Count 6.4 10^3/uL (3.5-10.8)
[2020-11-08 05:37] LABS: Albumin/Globulin Ratio 1.3 (1-3); EGFR Non-African American 64.5 (>60); Globulin 2.3 g/dL (2-4); Potassium 3.8 mmol/L (3.5-5.0); Total Bilirubin 0.4 mg/dL (0.2-1.0); Total Protein 5.3 g/dL (6.4-8.9)
[2020-11-08] MEDS ORDERED: Vancomycin Trough Check NOTE FOLLOW UP ONE (07:30)
[2020-11-08] MEDS: Pantoprazole VIAL 40 MG VIAL IV SCH ×2 (09:26→20:26)
[2020-11-08] MEDS: Cholecalciferol (VIT D3) 1,000 unit TAB PO SCH (09:28)
[2020-11-08] MEDS: Pancrelipase 5,000 units CAP PO SCH ×4 (09:32→20:25)
[2020-11-09] MEDS: Cefepime 1 GM in Dextrose 1 GM/50 ML BAG IV SCH (05:25)
[2020-11-09 06:06] LABS: ABS Eosinophils 0.1 10^3/ul (0-0.6); ABS Lymphocytes 0.5 10^3/ul (1.0-4.8); ABS Monocytes 0.6 10^3/ul (0-0.8); ABS Neutrophils 2.5 10^3/ul (1.5-7.7); Eosinophil % 3.5 %; Hematocrit 28 % (35-47); Hemoglobin 9.5 g/dL (12.0-16.0); Mean Corpuscular HGB Conc 34 g/dL (31-36); Mean Corpuscular Hemoglobin 29 pg (27-31); Mean Corpuscular Volume 86 fL (80-97); Mean Platelet Volume 8.9 fL (7.4-10.4); Nucleated Red Blood Cells % 0.3; Platelet Count 105 10^3/uL (150-450); Red Blood Count 3.26 10^6 /uL (3.70-4.87); Red Cell Distribution Width 16 % (10-15); White Blood Count 3.7 10^3/uL (3.5-10.8)
[2020-11-09 06:16] LABS: ALT 19 U/L (7-52); AST 35 U/L (13-39); Albumin 2.8 g/dL (3.2-5.2); Albumin/Globulin Ratio 1.2 (1-3); Alkaline Phosphatase 78 U/L (34-104); Anion Gap 3 mmol/L (2-11); Blood Urea Nitrogen 10 mg/dL (6-24); CO2 Carbon Dioxide 26 mmol/L (22-32); Calcium 7.9 mg/dL (8.6-10.3); Chloride 107 mmol/L (101-111); EGFR African American 68.7 (>60); EGFR Non-African American 56.8 (>60); Globulin 2.3 g/dL (2-4); Glucose 174 mg/dL (70-100); Potassium 3.7 mmol/L (3.5-5.0); Sodium 136 mmol/L (135-145); Total Protein 5.1 g/dL (6.4-8.9)
[2020-11-09] MEDS: Pancrelipase 5,000 units CAP PO SCH ×2 (08:16→12:13)
[2020-11-09] MEDS: Pantoprazole VIAL 40 MG VIAL IV SCH (08:16)
[2020-11-09] MEDS: Cholecalciferol (VIT D3) 1,000 unit TAB PO SCH (08:17)
[2020-11-09 11:59] VITALS: BP 101/55
[2020-11-09 13:31] LABS: Total Iron Binding Capacity 249 mcg/dL (250-450); Transferrin 178 mg/dL (203-362)
[2020-11-09 13:40] LABS: % Iron Saturation 8 % (15-55); Iron < 20 ug/dL (50-212); Unsaturated Iron Binding < 234 ug/dL
[2020-11-09 13:49] LABS: Ferritin 53.8 ng/mL (11-307)
== END 2020-11-09 14:30 | disposition home or self-care (01) | DRG 720 ==
LOC: ED 12:42 → MEDTELE 16:18
PROVIDERS: ADMIT Internal Medicine; ATTEND Internal Medicine

== ENCOUNTER 2020-12-31 16:04 | Inpatient (IN) ==
[2020-12-31] MEDS ORDERED: NS 0.9% 1000 ml BAG 1,000 ML IV ONE (17:47)
[2020-12-31 18:39] LABS: ABS Eosinophils 0.1 10^3/ul (0-0.6); ABS Lymphocytes 1.3 10^3/ul (1.0-4.8); ABS Monocytes 0.6 10^3/ul (0-0.8); ABS Neutrophils 7.1 10^3/ul (1.5-7.7); Eosinophil % 0.8 %; Hematocrit 27 % (35-47); Hemoglobin 8.8 g/dL (12.0-16.0); Lymphocyte % 14.3 %; Mean Corpuscular HGB Conc 33 g/dL (31-36); Mean Corpuscular Hemoglobin 29 pg (27-31); Mean Corpuscular Volume 88 fL (80-97); Mean Platelet Volume 8.5 fL (7.4-10.4); Platelet Count 240 10^3/uL (150-450); Red Blood Count 3.02 10^6 /uL (3.70-4.87); Red Cell Distribution Width 17 % (10-15); White Blood Count 9.1 10^3/uL (3.5-10.8)
[2020-12-31 18:57] LABS: Albumin 3.3 g/dL (3.2-5.2); Albumin/Globulin Ratio 1.2 (1-3); Calcium 8.5 mg/dL (8.6-10.3); EGFR African American 52.1 (>60); EGFR Non-African American 43.1 (>60); Globulin 2.7 g/dL (2-4); Potassium 4.5 mmol/L (3.5-5.0); Total Bilirubin 0.3 mg/dL (0.2-1.0)
[2020-12-31] MEDS ORDERED: Iodixanol (CONTRAST) 320 MG/ML 100 ML SDV IV ONE (18:59)
[2020-12-31] MEDS ORDERED: Ondansetron 4 mg VIAL 2 MG/ML 2 ml VIAL IV ONE (19:57)
[2020-12-31] MEDS ORDERED: Morphine 4 MG/ML VIAL (1 ml) IV ONE (19:57)
[2020-12-31] MEDS ORDERED: Pantoprazole VIAL 40 MG VIAL IV ONE (21:37)
[2020-12-31] MEDS ORDERED: Ondansetron 4 mg VIAL 2 MG/ML 2 ml VIAL IV PRN (21:37)
[2020-12-31] MEDS ORDERED: Dextrose 50% Syringe 50 ml 25 GM/50 ML SYRINGE IV PUSH PRN (21:37)
[2020-12-31] MEDS: Morphine 2 MG/ML SYRINGE IV PRN (22:36)
[2020-12-31] MEDS ORDERED: Cefepime 1 GM IV - ED ONCE IV ONE (23:00)
[2020-12-31] MEDS ORDERED: metroNIDAZOLE IV 500 MG/100ML - ED ONCE IVPB ONE (23:00)
[2021-01-01] MEDS: NS 0.9% 1000 ml BAG 1,000 ML IV SCH ×2 (00:48→11:16)
[2021-01-01 01:02] LABS: Hematocrit 23 % (35-47); Hemoglobin 7.5 g/dL (12.0-16.0)
[2021-01-01] MEDS: Pantoprazole 80 mg in NS BAG 80 MG/250 ML BAG IV SCH ×2 (01:36→12:15)
[2021-01-01] MEDS: Morphine 2 MG/ML SYRINGE IV PRN ×2 (03:29→08:50)
[2021-01-01] MEDS: metroNIDAZOLE IV 500 MG/100ML 500 MG/100 ML BAG IVPB SCH ×3 (07:40→22:04)
[2021-01-01 08:00] LABS: ABS Eosinophils 0.1 10^3/ul (0-0.6); ABS Lymphocytes 0.9 10^3/ul (1.0-4.8); ABS Monocytes 0.3 10^3/ul (0-0.8); ABS Neutrophils 2.4 10^3/ul (1.5-7.7); Eosinophil % 1.9 %; Hematocrit 28 % (35-47); Hemoglobin 9.6 g/dL (12.0-16.0); Lymphocyte % 23.3 %; Mean Corpuscular HGB Conc 34 g/dL (31-36); Mean Corpuscular Hemoglobin 30 pg (27-31); Mean Corpuscular Volume 88 fL (80-97); Mean Platelet Volume 8.3 fL (7.4-10.4); Nucleated Red Blood Cells % 0.1; Platelet Count 177 10^3/uL (150-450); Red Cell Distribution Width 16 % (10-15); White Blood Count 3.7 10^3/uL (3.5-10.8)
[2021-01-01 08:14] LABS: Calcium 7.5 mg/dL (8.6-10.3); EGFR African American 67.1 (>60); EGFR Non-African American 55.5 (>60); Potassium 4.2 mmol/L (3.5-5.0)
[2021-01-01] MEDS: Cefepime 1 GM in Dextrose 1 GM/50 ML BAG IV SCH ×2 (11:20→23:17)
[2021-01-01] MEDS ORDERED: Midazolam 10 mg/10 ml VIAL 1 mg/ml 10 ml VIAL (10 mg) ONE (14:46)
[2021-01-01] MEDS ORDERED: fentaNYL 100 mcg/2 ml 50 MCG/ML VIAL ONE (14:46)
[2021-01-01 14:49] LABS: Urine Appearance Clear; Urine Bilirubin Negative (Negative); Urine Blood Negative (Negative); Urine Color Straw; Urine Glucose Negative (Negative); Urine Ketones Negative (Negative); Urine Nitrite Negative (Negative); Urine Protein Negative (Negative); Urine Urobilinogen Negative (Negative)
[2021-01-01 20:56] LABS: Hematocrit 27 % (35-47); Mean Corpuscular HGB Conc 33 g/dL (31-36); Mean Corpuscular Hemoglobin 30 pg (27-31); Mean Corpuscular Volume 89 fL (80-97); Mean Platelet Volume 8.2 fL (7.4-10.4); Platelet Count 176 10^3/uL (150-450); Red Blood Count 3.04 10^6 /uL (3.70-4.87); Red Cell Distribution Width 16 % (10-15); White Blood Count 4.1 10^3/uL (3.5-10.8)
[2021-01-02] MEDS: Lactated Ringers 1000 ml BAG 1,000 ML IV SCH ×2 (03:12→23:57)
[2021-01-02] MEDS: Pantoprazole 80 mg in NS BAG 80 MG/250 ML BAG IV SCH ×4 (04:33→16:14)
[2021-01-02] MEDS: metroNIDAZOLE IV 500 MG/100ML 500 MG/100 ML BAG IVPB SCH ×3 (04:55→23:51)
[2021-01-02 05:19] LABS: Hematocrit 26 % (35-47); Hemoglobin 8.7 g/dL (12.0-16.0); Mean Corpuscular HGB Conc 33 g/dL (31-36); Mean Corpuscular Hemoglobin 29 pg (27-31); Mean Corpuscular Volume 88 fL (80-97); Mean Platelet Volume 8.4 fL (7.4-10.4); Platelet Count 191 10^3/uL (150-450); Red Blood Count 2.98 10^6 /uL (3.70-4.87); Red Cell Distribution Width 16 % (10-15)
[2021-01-02 05:36] LABS: Calcium 7.5 mg/dL (8.6-10.3); EGFR African American 81.3 (>60); EGFR Non-African American 67.2 (>60); Magnesium 1.4 mg/dL (1.9-2.7)
[2021-01-02] MEDS ORDERED: Magnesium Sulfate IV 3 GM in NS 0.9% 100 ml BAG 100 ML IVPB ONE (06:37)
[2021-01-02] MEDS: Cefepime 1 GM in Dextrose 1 GM/50 ML BAG IV SCH ×2 (11:50→22:09)
[2021-01-02 13:14] LABS: Hematocrit 29 % (35-47); Hemoglobin 9.6 g/dL (12.0-16.0); Mean Corpuscular HGB Conc 33 g/dL (31-36); Mean Corpuscular Hemoglobin 29 pg (27-31); Mean Corpuscular Volume 88 fL (80-97); Mean Platelet Volume 7.9 fL (7.4-10.4); Platelet Count 207 10^3/uL (150-450); Red Blood Count 3.28 10^6 /uL (3.70-4.87); Red Cell Distribution Width 17 % (10-15); White Blood Count 4.2 10^3/uL (3.5-10.8)
[2021-01-02 18:51] LABS: Hematocrit 28 % (35-47); Hemoglobin 9.2 g/dL (12.0-16.0); Mean Corpuscular HGB Conc 33 g/dL (31-36); Mean Corpuscular Hemoglobin 29 pg (27-31); Mean Corpuscular Volume 88 fL (80-97); Platelet Count 211 10^3/uL (150-450); Red Blood Count 3.16 10^6 /uL (3.70-4.87); Red Cell Distribution Width 16 % (10-15); White Blood Count 4.6 10^3/uL (3.5-10.8)
[2021-01-03] MEDS: Pantoprazole 80 mg in NS BAG 80 MG/250 ML BAG IV SCH ×3 (03:04→23:03)
[2021-01-03] MEDS: metroNIDAZOLE IV 500 MG/100ML 500 MG/100 ML BAG IVPB SCH ×2 (05:15→14:20)
[2021-01-03 05:54] LABS: Hematocrit 28 % (35-47); Hemoglobin 8.8 g/dL (12.0-16.0); Mean Corpuscular HGB Conc 31 g/dL (31-36); Mean Corpuscular Hemoglobin 30 pg (27-31); Mean Corpuscular Volume 96 fL (80-97); Platelet Count 183 10^3/uL (150-450); Red Blood Count 2.93 10^6 /uL (3.70-4.87); Red Cell Distribution Width 18 % (10-15); White Blood Count 3.8 10^3/uL (3.5-10.8)
[2021-01-03 06:23] LABS: Calcium 7.5 mg/dL (8.6-10.3); EGFR Non-African American 62.8 (>60); Magnesium 1.7 mg/dL (1.9-2.7)
[2021-01-03] MEDS ORDERED: Magnesium Sulfate 2 gm BAG 2 GM/50 ML BAG IVPB ONE (08:02)
[2021-01-03] MEDS: Cefepime 1 GM in Dextrose 1 GM/50 ML BAG IV SCH (10:52)
[2021-01-03] MEDS: Lactated Ringers 1000 ml BAG 1,000 ML IV SCH (14:20)
[2021-01-03 16:34] LABS: Hematocrit 27 % (35-47); Hemoglobin 9.1 g/dL (12.0-16.0); Mean Corpuscular HGB Conc 34 g/dL (31-36); Mean Corpuscular Hemoglobin 30 pg (27-31); Mean Corpuscular Volume 88 fL (80-97); Mean Platelet Volume 7.9 fL (7.4-10.4); Platelet Count 215 10^3/uL (150-450); Red Blood Count 3.06 10^6 /uL (3.70-4.87); Red Cell Distribution Width 16 % (10-15); White Blood Count 4.2 10^3/uL (3.5-10.8)
[2021-01-04 05:52] LABS: Hematocrit 26 % (35-47); Mean Corpuscular HGB Conc 34 g/dL (31-36); Mean Corpuscular Hemoglobin 30 pg (27-31); Mean Corpuscular Volume 87 fL (80-97); Platelet Count 206 10^3/uL (150-450); Red Blood Count 3.03 10^6 /uL (3.70-4.87); Red Cell Distribution Width 16 % (10-15); White Blood Count 4.8 10^3/uL (3.5-10.8)
[2021-01-04 06:11] LABS: Calcium 7.7 mg/dL (8.6-10.3); EGFR African American 72.2 (>60); EGFR Non-African American 59.7 (>60); Magnesium 1.6 mg/dL (1.9-2.7)
[2021-01-04] MEDS ORDERED: Magnesium Sulfate IV 3 GM in NS 0.9% 100 ml BAG 100 ML IVPB ONE (06:47)
[2021-01-04] MEDS ORDERED: Sulfamethox/Trimethoprim DS TAB 800/160 mg PO SCH (09:00)
[2021-01-04] MEDS: Lactated Ringers 1000 ml BAG 1,000 ML IV SCH (10:44)
[2021-01-04 11:41] VITALS: BP 93/57
== END 2021-01-04 13:30 | disposition home or self-care (01) | DRG 252 ==
LOC: ED 16:04 → SSU 22:51
PROVIDERS: ADMIT Internal Medicine; ATTEND Internal Medicine